=== PATIENT | female | born 1960 | race Caucasian/White ===

== ENCOUNTER 2016-12-08 18:42 | Observation (INO) | payer BC ==
[~2016-12-08] VITALS: Ht 165.1 cm; Wt 80.3 kg
[~2016-12-08 18:42] MED LIST: ESSENTIAL OILS PO; FEXO1TAB46 PO; LISI20TA PO; MULTTAB58 PO; [UNRECOGNIZED DRUG - OTHER]
[2016-12-08] MEDS ORDERED: ACETAMINOPHEN 325 MG TAB PO STA (19:34)
[2016-12-08 19:36] LABS: HEMATOCRIT 41.6 % (37-47); MEAN CELL VOLUME 88.7 fL (80-100); MEAN CORPUSCULAR HEMOGLOBIN 30.3 pg (25-34); MEAN CORPUSCULAR HGB CONC 34.1 g/dl (32-36); MEAN PLATELET VOLUME 11.8 fL (7.4-10.4); PLATELET COUNT 172 K/uL (130-400); RED BLOOD COUNT 4.69 M/uL (4.2-5.4); WHITE BLOOD COUNT 9.05 K/uL (4.8-10.8)
--- NOTE | 2016-12-08 19:43 | EMERGENCY ROOM VISIT NOTE ---
History Report prepared by Isai: Nickolas Daniel Under the Supervision of: Dr. Briana Crews M.D. First contact with patient: 19:25 Chief Complaint: PALPITATIONS Stated Complaint: CHEST PAIN Nursing Triage Summary: Pt reports that today at noon, while grocery shopping pt began to exerience palpitations. Pt reported feeling a "twinge" in the middle of the chest. Slight nausea. [place] like her heart was racing. Also reporting heart burn, and headache. Symptoms persisted off and on throughout the day and pt went to walk-in clinic at 1800. EKG performed there and found to be "abnormal". Given 324 ASA. Sent to [facility] via Ambulance. Hx of HTN and acid reflux. Tx reflux with peppermint oil beads. History of Present Illness The patient is a 55 year old female who presents to the Emergency Room via EMS with complaints of persistent chest pain that started around 3 hours ago. She says that last night she had cramping in her legs and toes, and had really bad heartburn. The patient notes that she does get leg cramps intermittently, but last night the cramping was worse than normal. She adds that her left leg was the most painful. The patient says that her chest pain started around 3 hours ago, and she describes it as intermittent quick shooting pains, which started underneath her breast bone, and then moved up to the middle of her chest. She notes that it is not very painful taking a deep breath. The patient currently rates her pain as a 3 out of 10 in severity. She adds that she has a headache too, but has been getting some headaches recently. She notes that over the past few months, she has felt "weird" and very tired if she overexerts herself. She went to her doctor, and was put on thyroid medication 7 weeks ago. She notes that she has not been having chest pain with exertion, but she has been getting a bit short of breath. The patient denies a worsening cough. She notes no history of blood clots, but her father did of a pulmonary embolism. She notes no recent trips or surgeries, but she adds that she has been under a lot of stress recently, with her son being in some trouble and her cat dying. The patient adds that she was given Aspirin at the clinic prior to arrival today. She has a family history of heart disease. The patient is not on any blood thinners and she is a non-smoker. Source of History: patient Onset: 3 hours ago Position: chest Quality: other (quick shooting pains) Timing: other (persistent) Associated Symptoms: + headache, + SOB (recently if exerts herself too much) , + fatigue (over past few months ), No cough (any worsened) Note: Associated symptoms: Last night had cramping in legs and toes and had bad heartburn. Review of Systems See HPI for pertinent positives & negatives. A total of 10 systems reviewed and were otherwise negative. Past Medical & Surgical Medical Problems: (1) Diabetes (2) History of bowel removal from diverticulitis (3) HTN (hypertension) Family History Diabetes mellitus FH: pulmonary embolism Gallbladder disease Heart disease Hypertension Social History Smoking Status: Never Smoker Marital Status: Housing Status: lives with family Occupation Status: employed Current/Historical Medications Scheduled Hctz/Lisinopril (PRINZIDE 20/12.5 Mg), 0.5 TAB PO DAILY Levothyroxine Sodium (Synthroid), 25 MCG PO DAILY Multiple Vitamin (Multivitamin), 1 TAB PO QAM [Essential Oils], 1 CAP PO QAM Allergies Coded Allergies: Morphine (Verified Allergy, Intermediate, RASH, 12/08/16) Physical Exam Vital Signs Date Time Temp Pulse Resp B/P (MAP) Pulse Ox O2 Delivery O2 Flow Rate FiO2 12/08/16 21:01 108/86 12/08/16 20:47 87 16 97 12/08/16 20:30 113/70 12/08/16 20:17 88 20 96 12/08/16 20:06 90 17 115/73 96 Room Air 12/08/16 20:06 115/73 12/08/16 19:47 93 29 94 12/08/16 19:42 87 20 93 12/08/16 19:31 133/100 12/08/16 19:12 90 22 92 12/08/16 19:01 155/96 12/08/16 18:53 97 12/08/16 18:50 148/86 12/08/16 18:42 95 Room Air 12/08/16 18:42 95 Room Air 12/08/16 18:42 37.2 80 17 148/86 95 Room Air Physical Exam Vital signs reviewed. General: Well-appearing 55 year old female, in no significant distress. HEENT: No scleral icterus, PERRLA, neck supple. Atraumatic. Cardiovascular: Regular rate and rhythm, no extra sounds. Pulmonary: Clear to auscultation bilaterally, normal work of breathing. Abdomen: Soft, nontender, nondistended, positive bowel sounds. Musculoskeletal: Atraumatic, no peripheral edema. Neurologic: Patient awake alert and oriented x 3, full strength in all 4 extremities. Cranial nerves 2 through 12 grossly intact. Skin: Warm, dry, no rash Medical Decision & Procedures ER Provider Diagnostic Interpretation: X-ray results as stated below per interpretation by me and the radiologist: CHEST ONE VIEW PORTABLE CLINICAL HISTORY: Chest pain. COMPARISON STUDY: Chest radiograph January 18, 2017. FINDINGS: Lung volumes are normal. Mild left basilar opacity is suggestive of atelectasis. There is no evidence of pulmonary edema. There is no consolidation to suggest pneumonia. The cardiomediastinal silhouette is normal. IMPRESSION: No acute cardiopulmonary findings. Electronically signed by: Tom Vick M.D. 12/08/2016 7:40 PM Dictated Date/Time: 12/08/2016 7:39 PM Laboratory Results 12/08/16 19:00 12/08/16 19:00 Test 12/08/16 19:00 12/08/16 19:12 Red Blood Count 4.69 M/uL (4.2-5.4) Mean Corpuscular Volume 88.7 fL (80-100) Mean Corpuscular Hemoglobin 30.3 pg (25-34) Mean Corpuscular Hemoglobin Concent 34.1 g/dl (32-36) RDW Standard Deviation 42.8 fL (36.4-46.3) RDW Coefficient of Variation 13.3 % (11.5-14.5) Mean Platelet Volume 11.8 fL (7.4-10.4) Anion Gap 7.0 mmol/L (3-11) Est Creatinine Clear Calc Drug Dose 77.4 ml/min Estimated GFR () 88.1 Estimated GFR (Non- 76.1 BUN/Creatinine Ratio 17.9 (10-20) Calcium Level 9.6 mg/dl (8.5-10.1) Total Bilirubin 0.3 mg/dl (0.2-1) Aspartate Amino Transf (AST/SGOT) 24 U/L (15-37) Alanine Aminotransferase (ALT/SGPT) 29 U/L (12-78) Alkaline Phosphatase 71 U/L (45-117) Total Creatine Kinase 157 U/L (26-192) Creatine Kinase MB 1.7 ng/ml (0.5-3.6) Creatine Kinase MB Ratio 1.1 (0-3.0) Total Protein 7.8 gm/dl (6.4-8.2) Albumin 4.1 gm/dl (3.4-5.0) Globulin 3.7 gm/dl (2.5-4.0) Albumin/Globulin Ratio 1.1 (0.9-2) Bedside Troponin I < 0.030 ng/ml (0-0.045) Laboratory results per my review. Medications Administered Medications (Trade) Dose Ordered Sig/Kaur Route Start Time Stop Time Status Last Admin Dose Admin Nitroglycerin (Nitrostat Tab) 0.4 mg Q5M PRN SL 12/08/16 19:45 12/08/16 21:50 DC 12/08/16 19:51 0.4 MG Acetaminophen (Tylenol Tab) 650 mg NOW STAT PO 12/08/16 19:34 12/08/16 19:35 DC 12/08/16 19:51 650 MG ECG Indication: chest pain Rate (beats per minute): 85 Rhythm: normal sinus Findings: no acute ischemic change, no ectopy, other (previous septal infarct) ED Course 1925: Past medical records reviewed. The patient was evaluated in room B5. A complete history and physical examination was performed. The patient verbally expressed understanding and agreement of the treatment plan. The patient will be evaluated for further treatment. 1933: Ordered Tylenol Tab 650 mg PO. 1944: Ordered Nitrostat Tab 0.4 mg SL PRN. 2039: I discussed the patient with Dr. Campuzano - [facility] director radio - he will evaluate the patient for further treatment. Medical Decision DDx: Acute coronary syndrome, pulmonary embolus, aortic dissection, musculoskeletal pain, pneumonia, pleural effusion, pneumothorax This patient was evaluated and appeared to be in no significant distress. IV access was obtained and laboratory work was drawn. Patient was given sublingual nitroglycerin patient was given oral Tylenol for her headache. EKG reveals no evidence of acute ischemia. Laboratory work reveals normal cardiac enzymes. Chest x-ray was obtained and is clear. Given the patient's history of diabetes and hypertension as well as the short duration of her chest pain, the patient will be evaluated by the hospitalist service for further management. She is aware of the plan and agrees. Medication Reconcilliation Current Medication List: was personally reviewed by me Blood Pressure Screening Patient's blood pressure: Elevated blood pressure Referred to hospitalist. Consults Time Called: 2029 Consulting Physician: Dr. Justen QUINTANILLA director radio Returned Call: 2039 I discussed the patient with Dr. Justen QUINTANILLA director radio - he will evaluate the patient for further treatment. Impression Primary Impression: Substernal chest pain Additional Impression: HTN (hypertension) Scribe Attestation The scribe's documentation has been prepared under my direction and personally reviewed by me in its entirety. I confirm that the note above accurately reflects all work, treatment, procedures, and medical decision making performed by me. Departure Information Dispostion Being Evaluated By Hospitalist Referrals Edelmira Ayala (PCP) Patient Instructions My [facility] Problem Qualifiers
[2016-12-08] MEDS ORDERED: NITROGLYCERIN 0.4 MG SL PER TAB CHARGE SL PRN ×2 (19:45→21:15)
[2016-12-08 19:47] LABS: BUN/CREATININE RATIO 17.9 (10-20); CALCIUM 9.6 mg/dl (8.5-10.1); CREATININE 0.86 mg/dl (0.60-1.20)
[2016-12-08] MEDS ORDERED: LSN/20125 PO (19:50)
[2016-12-08] MEDS ORDERED: LEVO25TA PO (19:50)
[2016-12-08 19:51] LABS: ALB/GLOB RATIO 1.1 (0.9-2); CKMB/CK RATIO 1.1 (0-3.0)
[2016-12-08] MEDS ORDERED: MAGNESIUM HYDROXIDE SUSP 30 ML UDC PO PRN (21:15)
[2016-12-08] MEDS ORDERED: POLYETHYLENE (MIRALAX) 17 GM PACK PO PRN (21:15)
[2016-12-08] MEDS ORDERED: ONDANSETRON INJ 2 MG/ML 2 ML VIAL IV PRN (21:15)
[2016-12-08] MEDS ORDERED: IV FLUIDS COMPLETED PRN (21:15)
[2016-12-08] MEDS ORDERED: ALUMINUM/MAGNESIUM/SIMETH (MAALOX MAX) 30 ML UDC PO PRN (21:15)
[2016-12-08] MEDS ORDERED: ACETAMINOPHEN 325 MG TAB PO PRN (21:15)
[2016-12-08 21:26] VITALS: O2SAT 95
--- NOTE | 2016-12-08 21:31 | History and Physical ---
History & Physical Date & Time of Service: Dec 08, 2016 at 21:11 Chief Complaint: Chest Pain Primary Care Physician: Edelmira Ayala History of Present Illness Source: patient, family The patient is a 55 y/o F who presents with complaints of chest pain that started around 3 hours ago. Her pain is a 3/10 and is intermittent. Radiates to her lower chest. She also reports having had leg cramps last night as well as some heart burn that persisted into today. Denies chest pain or shortness of breath with inspiration. The patient notes that she does get leg cramps intermittently, but last night the cramping was worse than normal. She denies any recent travel except for a 1 hr car ride. She also reports headaches intermittently. Overall she just doesn't feel like herself and fatigued. She was also recently started on Synthroid. She also noted that her blood pressure was waxing and waning. She went to the [facility] walk in before coming to the ER where she was told her EKG had some changes. She was given aspirin at the clinic. She does not have prior cardiac history. Her father did pass from a PE. She has no personal history of blood clots. She has had some stressors recently with her son and cat that . Denies smoking Denies history of CT or Strokes Stays home Past Medical/Surgical History Medical Problems: (1) Diabetes Status: Chronic (2) History of bowel removal from diverticulitis Status: Chronic (3) HTN (hypertension) Status: Chronic Family History Diabetes mellitus FH: pulmonary embolism Gallbladder disease Heart disease Hypertension Social History Smoking Status: Never Smoker Marital Status: Occupational Status: employed Immunizations History of Influenza Vaccine: No History of Tetanus Vaccine?: No Tetanus Immunization Date: Apr 03, 2004 History of Pneumococcal: No History of Hepatitis B Vaccine: No Multi-Drug Resistant Organisms History of MDRO: No Allergies Coded Allergies: Morphine (Verified Allergy, Intermediate, RASH, 12/08/16) Home Medications Scheduled Hctz/Lisinopril (PRINZIDE 20/12.5 Mg), 0.5 TAB PO DAILY Levothyroxine Sodium (Synthroid), 25 MCG PO DAILY Multiple Vitamin (Multivitamin), 1 TAB PO QAM [Essential Oils], 1 CAP PO QAM Review of Systems Constitutional: No fever, No chills Eyes: No worsening of vision Respiratory: No cough, No sputum, No wheezing, No shortness of breath, No dyspnea on exertion, No dyspnea at rest Cardiovascular: + chest pain, No edema Abdomen: + nausea, No pain, No vomiting, No diarrhea, No constipation Genitourinary - Female: No dysuria, No urinary frequency, No urinary urgency Physical Exam Vital Signs Date Time Temp Pulse Resp B/P (MAP) Pulse Ox O2 Delivery O2 Flow Rate FiO2 12/08/16 20:06 90 17 115/73 96 Room Air 12/08/16 19:42 87 20 93 12/08/16 19:31 133/100 12/08/16 19:12 90 22 92 12/08/16 19:01 155/96 12/08/16 18:53 97 12/08/16 18:50 148/86 12/08/16 18:42 95 Room Air 12/08/16 18:42 95 Room Air 12/08/16 18:42 37.2 80 17 148/86 95 Room Air General Appearance: no apparent distress Head: normocephalic, atraumatic Eyes: normal inspection, PERRL, EOMI ENT: hearing grossly normal, pharynx normal Neck: no adenopathy, no JVD Respiratory/Chest: lungs clear, normal breath sounds, no respiratory distress, no accessory muscle use Cardiovascular: regular rate, rhythm, no edema, no murmur, normal peripheral pulses Abdomen/GI: normal bowel sounds, non tender, soft Back: no CVA tenderness, no muscle spasm, normal range of motion Extremities/Musculoskelatal: no calf tenderness, no pedal edema Neurologic/Psych: shell mold bonder II-XII nml as tested, no motor/sensory deficits, alert, normal mood/affect, normal reflexes, oriented x 3 Diagnostics Laboratory Results Results Past 24 Hours Test 12/08/16 19:00 12/08/16 19:12 12/08/16 20:19 12/08/16 20:56 Range/Units White Blood Count 9.05 4.8-10.8 K/uL Red Blood Count 4.69 4.2-5.4 M/uL Hemoglobin 14.2 12.0-16.0 g/dL Hematocrit 41.6 37-47 % Mean Corpuscular Volume 88.7 80-100 fL Mean Corpuscular Hemoglobin 30.3 25-34 pg Mean Corpuscular Hemoglobin Concent 34.1 32-36 g/dl RDW Standard Deviation 42.8 36.4-46.3 fL RDW Coefficient of Variation 13.3 11.5-14.5 % Platelet Count 172 130-400 K/uL Mean Platelet Volume 11.8 7.4-10.4 fL Sodium Level 138 136-145 mmol/L Potassium Level 4.0 3.5-5.1 mmol/L Chloride Level 104 98-107 mmol/L Carbon Dioxide Level 27 21-32 mmol/L Anion Gap 7.0 3-11 mmol/L Blood Urea Nitrogen 15 7-18 mg/dl Creatinine 0.86 0.60-1.20 mg/dl Est Creatinine Clear Calc Drug Dose 77.4 ml/min Estimated GFR () 88.1 Estimated GFR (Non- 76.1 BUN/Creatinine Ratio 17.9 10-20 Random Glucose 108 70-99 mg/dl Calcium Level 9.6 8.5-10.1 mg/dl Total Bilirubin 0.3 0.2-1 mg/dl Aspartate Amino Transf (AST/SGOT) 24 15-37 U/L Alanine Aminotransferase (ALT/SGPT) 29 12-78 U/L Alkaline Phosphatase 71 45-117 U/L Total Creatine Kinase 157 26-192 U/L Creatine Kinase MB 1.7 0.5-3.6 ng/ml Creatine Kinase MB Ratio 1.1 0-3.0 Total Protein 7.8 6.4-8.2 gm/dl Albumin 4.1 3.4-5.0 gm/dl Globulin 3.7 2.5-4.0 gm/dl Albumin/Globulin Ratio 1.1 0.9-2 Bedside Troponin I < 0.030 0-0.045 ng/ml Test 12/08/16 21:04 Range/Units Impression Assessment and Plan This is a 55 y/o F who presents with chest pain, fatigue and overall feeling "unwell". Chest pain r/o vs. inflammatory conditions vs. GERD vs. anxiety: Initial troponin negative trend x 3 EKG with evidence of old infarct Hold on stress echo ?inflammatory conditions- ESR, TAMI ordered D-Dimer pending Diabetes, diet controlled Diabetic diet HTN HCTZ/Losartan DVT proph Lovenox Gerd Protonix COde: Full Attending Addendum: I have physically seen and examined this patient, have directed the resident's medical activities, and agree with the H&P as noted above with the following exceptions as noted. The patient is awake, alert and oriented 3, well-developed and well-nourished , normocephalic and atraumatic, lying in bed and in no acute distress. HEENT--PERRL, EOMI, mucous membranes and oropharynx dry. Neck--supple, no JVD or bruits, thyroid normal, trachea midline, no adenopathy. Heart--normal S1 and S2, no extra beats, no murmurs, rubs or gallops. Lungs--clear bilaterally with good air movement, no respiratory distress, no accessory muscle use. Abdomen--normal bowel sounds and soft, nontender and nondistended, no hernias or masses, no organomegaly. Extremities--no cyanosis, clubbing or edema. There are good distal pulses b/l. Dermatologic--normal skin turgor, normal color, warm and dry, no abnormal lymph nodes, no rash. Neurologic--cranial nerves II through XII grossly intact. Rheumatologic--normal range of motion. Psychiatric--normal affect. Assessment and Plan: Precordial chest pain/myalgias and arthralgias/fatigue-- The patient will be admitted to telemetry for serial cardiac enzymes, cardiac rhythm monitoring and a 2-D echocardiogram with Dopplers. Order sedimentation rate, TAMI and Lyme. D-dimer pending. Diet-controlled diabetes mellitus-- Place on Accu-Cheks before meals and at bedtime with NovoLog coverage per scale. Hypertension-- Continue HCTZ/losartan. GERD--continue Protonix Level of Care Telemetry Advanced Directives Existing Advance Directive: No Existing Living Will: No Existing Power of Rooming House Inspector: No Resuscitation Status FULL RESUSCITATION VTE Prophylaxis VTE Risk Assessment Done? Y/N: Yes Risk Level: Moderate Given or contraindicated: SCD's Social Service Consult None Apply
[2016-12-08 21:52] VITALS: BP 145/80; PULSE 69; TEMP 36.6; Ht 165.1 cm; Wt 80.3 kg
[2016-12-08] MEDS ORDERED: INFLUENZA ADMINISTRATION CHARGE ONE (22:00)
[2016-12-08] MEDS ORDERED: INFLUENZA VIRUS QUAD VACCINE 0.5 ML SYR IM. ONE (22:00)
[2016-12-08 22:37] LABS: INR 0.9 (0.9-1.1); PARTIAL THROMBOPLASTIN RATIO 0.9
[2016-12-08 23:39] VITALS: BP 125/77; PULSE 72; TEMP 36.5; O2SAT 97
[2016-12-09 03:27] VITALS: BP 110/74; PULSE 70; TEMP 36.5; O2SAT 94
[2016-12-09 03:59] LABS: CHOLESTEROL 189 mg/dl (0-200); HDL CHOLESTEROL 63 mg/dl; LDL CHOLESTEROL CALCULATED 110 mg/dl; TRIGLYCERIDES 80 mg/dl (0-150); VERY LOW DENSITY LIPOPROT CALC 16 mg/dl
[2016-12-09] MEDS ORDERED: LEVOTHYROXINE 25 MCG TAB PO SCH (06:00)
[2016-12-09 07:27] VITALS: BP 143/89; PULSE 63; TEMP 36.4; O2SAT 99
[2016-12-09] MEDS ORDERED: MULTIVITAMIN TAB PO SCH (09:00)
[2016-12-09] MEDS ORDERED: ENOXAPARIN 40 MG/0.4 ML SYR SC SCH (09:00)
[2016-12-09] MEDS ORDERED: PANTOprazole SOD 40 MG TAB PO SCH (09:00)
[2016-12-09] MEDS ORDERED: LISINOPRIL/HCTZ 20/12.5MG TAB PO SCH (09:00)
--- NOTE | 2016-12-09 10:45 | Discharge Instructions ---
Discharge Instructions Date of Service Dec 09, 2016. Admission Reason for Admission: Substernal Chest Pain Discharge Discharge Diagnosis / Problem: Chest Pain of Unknown Origin Discharge Goals Goal(s): Decrease discomfort, Improve function, Increase independence, Improve disease control, Improve nutritional status, Learn about illness Activity Recommendations Activity Limitations: per Instructions/Follow-up section . Instructions / Follow-Up Instructions / Follow-Up You were admitted to the hospital for a chest pain rule out. Your initial EKG showed evidence of a previous heart attack. Your two follow up EKGs did not show evidence of a previous heart attack. Your blood work did not show any leakage from your heart of Troponin (an enzyme released by a heart in distress). The troponin level was checked three times and was undetectable each time. The blood work showed a D-Dimer level of 250. This number means you are unlikely to have a blood clot in your body. You have excellent cholesterol levels. Your cholesterol level, taking into account your gender, blood pressure and age, means you do not need to be on a daily Aspirin. Please follow up with your PCP in one week. We recommend a cardiac stress test to evaluate your heart function. Please mention this to your PCP, they would be able to arrange it. A copy of your hospital records will also be sent to your PCP - and it will also mention our recommendation for an outpatient cardiac stress test. Information on exercise stress tests (a subtype of cardiac stress test) will be included in your discharge paperwork. Continue to eat healthy and take your blood pressure and thyroid medications as prescribed. Current Hospital Diet Patient's current hospital diet: Diabetes Type 2 Diet Discharge Diet Recommended Diet: AHA Diet (Heart Healthy) Pending Studies Studies pending at discharge: no Laboratory Results Lipid Panel Test 12/09/16 03:20 Range/Units Triglycerides Level 80 0-150 mg/dl Cholesterol Level 189 0-200 mg/dl HDL Cholesterol 63 mg/dl Cholesterol/HDL Ratio 3.0 LDL Cholesterol, Calculated 110 mg/dl Medical Emergencies . Who to Call and When: Medical Emergencies: If at any time you feel your situation is an emergency, please call 911 immediately. . Non-Emergent Contact Non-Emergency issues call your: Primary Care Provider . . "Provider Documentation" section prepared by Mo Fraga. . VTE Core Measure Inpt VTE Proph given/why not?: Enoxaparin (Lovenox)SQ Resident Involvement: Resident Care Provided Care Provided: Adult Hospital Medicine
--- NOTE | 2016-12-09 10:54 | Discharge Summary ---
Discharge Summary Date of Service Dec 09, 2016. (Mo Fraga M.D.) Discharge Summary Admission Date: Dec 08, 2016 at 21:08 Discharge Date: Dec 09, 2016 Discharge Disposition: Home Principal Diagnosis: Chest pain of unknown origin, likely pleuritic. Problems/Secondary Diagnoses: (1) HTN (hypertension) Status: Chronic Immunizations: Have You Had Influenza Vaccine: No History of Tetanus Vaccine?: No Tetanus Immunization Date: Apr 03, 2004 History of Pneumococcal: No History of Hepatitis B Vaccine: No Procedures: Stress Echocardiogram 1. Normal stress echocardiogram at 8.9 METS and a peak heart rate of 96% predicted maximum. 2. No exercise-induced chest pain. 3. No EKG changes. 4. Baseline echocardiogram notes normal left ventricular systolic function. Repeat EKG Normal sinus rhythm Normal ECG When compared with ECG of 08-DEC-2016 18:49, (unconfirmed) Criteria for Septal infarct are no longer Present CHEST ONE VIEW PORTABLE CLINICAL HISTORY: Chest pain. COMPARISON STUDY: Chest radiograph January 18, 2017. FINDINGS: Lung volumes are normal. Mild left basilar opacity is suggestive of atelectasis. There is no evidence of pulmonary edema. There is no consolidation to suggest pneumonia. The cardiomediastinal silhouette is normal. IMPRESSION: No acute cardiopulmonary findings. (Mo Fraga M.D.) Medication Reconciliation Continued Medications: Hctz/Lisinopril (PRINZIDE 20/12.5 Mg) 1 Ea Tab 0.5 TAB PO DAILY, TAB Levothyroxine Sodium (Synthroid) 25 Mcg Tab 25 MCG PO DAILY, TAB Multiple Vitamin (Multivitamin) 1 Tab Tab 1 TAB PO QAM, TAB [Essential Oils] () 1 CAP PO QAM Discharge Exam The patient was seen and examined at bedside. No acute overnight events. Telemetry showed sinus rhythm in the 60s and 70s. Patient is resting comfortably in bed. Only reports having chest pain on deep inhalation. Pt is on room air. Plan of care was described to the patient and all questions were answered. Review of Systems: Constitutional: No fever, No weight loss, No weakness ENT: No hearing loss Respiratory: No cough, No sputum, No shortness of breath, No dyspnea on exertion Cardiovascular: No orthopnea, No edema Abdomen: No pain, No nausea, No vomiting, No diarrhea, No constipation Genitourinary - Female: No dysuria Psychiatric: No anxiety Endocrine: No fatigue, No excessive thirst Integumentary: No rash Physical Exam: General Appearance: WD/WN, no apparent distress Eyes: normal inspection ENT: normal ENT inspection Neck: supple Respiratory/Chest: chest non-tender, lungs clear, normal breath sounds, no respiratory distress, no accessory muscle use Cardiovascular: regular rate, rhythm, no edema, no gallop, no JVD, no murmur , normal peripheral pulses Abdomen / GI: normal bowel sounds, non tender, soft, no organomegaly, no pulsatile mass, normal rectal exam Extremities: normal inspection, no calf tenderness (bilaterally), no pedal edema, normal range of motion, non-tender Neurologic/Psychiatric: digital strategist II-XII nml as tested, no motor/sensory deficits , alert, normal mood/affect, normal reflexes, oriented x 3 Skin: normal color, warm/dry, no rash (Mo Fraga M.D.) has had occasional twinges in chest this morning. none like last night Review of Systems: Constitutional: No fever Respiratory: No shortness of breath Abdomen: No pain Physical Exam: General Appearance: no apparent distress Respiratory/Chest: lungs clear, no respiratory distress Cardiovascular: regular rate, rhythm Abdomen / GI: soft Neurologic/Psychiatric: alert, oriented x 3 (Shruti Griffiths M.D.) Hospital Course 55F with a PMHx of HTN and Hypothyroidism presented to the ER c/o crushing chest pain. Nonspecific changes on admission EKG. Repeat EKGs showed normal sinus rhythm. Pt was also complaining of bilateral toe pain and left ankle pain on admission that has resolved. D-Dimer was 250, however she does have a family history on her fathers side and paternal grandfather. Patient's troponins were negative x 3. Stress echocardiogram results are as above and were grossly normal. Patient will be discharged in good condition. Pt advised to follow up with PCP within two weeks. Pt's fasting lipids, age, BP and non smoking history put patient at 3.6% 10 year [place]/Stroke risk, ergo she does not meet criteria for daily ASA 81mg prophylaxis. Total Time Spent: Greater than 30 minutes (33 minutes) This includes examination of the patient, discharge planning, medication reconciliation, and communication with other providers. (Mo Fraga M.D.) Resident Physician Supervision Note: I independently interviewed and examined the patient and verified the wall history and physical, reviewed labs and image studies, discussed the case with the resident Dr. Frgaa and agree with the findings and care plan. Total Time Spent: Greater than 30 minutes (35) (Shruti Griffiths M.D.) Discharge Instructions Please refer to the electronic Patient Visit Report (Discharge Instructions) for additional information. (Mo Fraga M.D.) Follow-Up Follow up with PCP in one week. (Mo Fraga M.D.) Additional Copies To Edelmira Ayala Resident Involvement: Resident Care Provided Care Provided: [facility] (Mo Fraga M.D.)
[2016-12-09 13:02] VITALS: BP 143/89; PULSE 63; TEMP 36.4; O2SAT 99
--- NOTE | 2016-12-09 13:06 | EXERCISE STRESS ECHO ---
*NOTICE TO RECEIVING DEMOCRAT AGENCY This information is strictly Confidential and protected under [place] law. [place] law prohibits you from making any further disclosure of this information unless further disclosure is expressly permitted by the written consent of the person to whom it pertains or is authorized by law. A general authorization for the release of medical or other information is not sufficient for this purpose. Hospital accepts no responsibility if the information is made available to any other person, INCLUDING THE PATIENT. Interpretation Summary * Name: ALEXIS COLLIER Study Date: 12/09/2016 11:03 AM BP: 126/90 mmHg * Patient Location: .2T\S\S234\S\1 HR: 81 * : 1960 (M/d/yyyy) Gender: Female Height: 65 in * Age: 55 yrs Ethnicity: CA Weight: 177 lb * Ordering Physician: Shruti Griffiths * Referring Physician: Self, Referred * Performed By: Jessica Cesar RCS * * Reason For Study: CHEST PAIN * BSA: 1.9 m2 * -- Conclusions -- * 1. Normal stress echocardiogram at 8.9 METS and a peak heart rate of 96% predicted maximum. * 2. No exercise-induced chest pain. * 3. No EKG changes. * 4. Baseline echocardiogram notes normal left ventricular systolic function. Procedure Details * ECHOEX, CPT #92005 Left Ventricle * The left ventricle is normal in size. * There is normal left ventricular wall thickness. * Left ventricular systolic function is normal. * Resting wall motion: Normal. Stress wall motion: Appropriate increase in Left ventricular systolic function and decrease in cavity size. No stress induced segmental wall motion abnormalities. Stress Parameters * Normal baseline electrocardiogram. * The stress ECG response was normal * The stress portion of this study was personally supervised by the undersigned interpreting physician. * Rest heart rate was '81' BPM. * Rest blood pressure was '126/90' * Maximum heart rate achieved was 160 bpm. * Maximum heart rate was 96 % of maximum age-predicted heart rate. * Maximum blood pressure was '205/84' * Total exercise time was '7:15' * Maximum exercise MET level achieved was '8.9' METS * Maximum treadmill speed was '3.4' miles per hour. * Maximum treadmill elevation was '14'% grade. * Exercise was terminated due to 'fatigue after achieving target heart rate'
== END 2016-12-09 13:15 | disposition home or self-care (01) ==
LOC: EDBD 18:42 → C.EDB 18:44 → C.2T 21:08 → ENRESERV 21:16
PROVIDERS: ADMIT Hospitalist; ATTEND Family Medicine
DX: R07.2 Precordial pain (principal); I10 Essential (primary) hypertension; E11.9 Type 2 diabetes mellitus without complications; E03.9 Hypothyroidism, unspecified; K21.9 Gastro-esophageal reflux disease without esophagitis; Z79.899 Other long term (current) drug therapy

== ENCOUNTER → 2017-05-23 | Outpatient (CLI) | payer BC ==
[~2017-05-23] MED LIST changes: -FEXO1TAB46 PO; +LEVO25TA PO; -LISI20TA PO; +LSN/20125 PO; -[UNRECOGNIZED DRUG - OTHER]
--- NOTE | 2017-05-23 15:22 | MAMMOGRAPHY REPORT ---
BILATERAL DIGITAL DIAGNOSTIC MAMMOGRAM TOMOSYNTHESIS WITH CAD AND TARGETED BILATERAL ULTRASOUND: 2017 CLINICAL HISTORY: The patient reports right lateral breast pain for approximately 2 weeks. She denie s any clear palpable lumps or other complaints. TECHNIQUE: Breast tomosynthesis in addition to standard 2D mammography was performed. Current study was also evaluated with a Computer Aided Detection (CAD) system. Bilateral CC and MLO and left ML 2D and tomosynthesis images were obtained. COMPARISON: No prior exams were available for comparison. BREAST COMPOSITION: There are scattered areas of fibroglandular density in both breasts. FINDINGS: There is an asymmetry seen within the left superior breast on the MLO view, which is less p rominent on the left ML view and likely represents normal fibroglandular tissue although ultrasound w as performed. The remainder of both breasts demonstrate no suspicious masses, calcifications, or are as of architectural distortion. A few scattered benign-appearing calcifications are noted. Targeted ultrasound was performed of the area of pain pointed out by the patient involving the right lateral breast. Sonographically normal tissue is seen, without evidence of a mass or other suspiciou s sonographic abnormality. Ultrasound was also performed of the left superior breast in the region o f the mammographic asymmetry, which also shows no suspicious masses or other suspicious sonographic a bnormalities. Given that the asymmetry is less prominent on the lateral view and ultrasound showed n o sonographic correlate, it is benign and compatible with normal fibroglandular tissue. IMPRESSION: ACR BI-RADS CATEGORY 2: BENIGN, TARGETED ULTRASOUND ACR BI-RADS CATEGORY 2: BENIGN No suspicious mammographic or sonographic abnormality to explain right lateral breast pain. There is no mammographic evidence of malignancy in either breast. Recommend clinical follow-up for right rodrigo ast pain, and recommend routine bilateral screening mammograms in one year. The patient has been verbally notified of the results. Approximately 10% of breast cancers are not detected with mammography. A negative mammographic report should not delay biopsy if a clinically suggestive mass is present. Chyna John M.D. /:05/23/2017 12:12:14 Bracelet Form Coverer: Radha GONZALEZ (R)), [facility] letter sent: Normal 1/2 BI-RADS Code: ACR BI-RADS Category 2: Benign Ultrasound BI-RADS: ACR BI-RADS Category 2: Benign
== END | disposition home or self-care (01) ==
LOC: C.MAMM 11:15
PROVIDERS: ATTEND Nurse Practitioner Family
DX: N64.4 Mastodynia (principal)

== ENCOUNTER 2020-08-26 14:20 | Observation (INO) ==
[2020-08-26] MEDS ORDERED: SODIUM CHLORIDE 0.9% 1000ML 2,000 ML IV ONE (15:25)
[2020-08-26] MEDS ORDERED: PIPERACILL/TAZOBAC CONSULT ACTIVE PRN (15:26)
[2020-08-26] MEDS ORDERED: PIPERACILLIN/TAZOBACTAM 4.5 GM/120 ML BAG IV ONE (15:26)
[2020-08-26] MEDS ORDERED: ONDANSETRON INJ 2 MG/ML 2 ML VIAL IV STA ×2 (15:26→18:18)
[2020-08-26] MEDS ORDERED: ACETAMINOPHEN 325 MG TAB PO STA (15:44)
--- NOTE | 2020-08-26 15:44 | Emergency Department Note ---
Impression & Plan Sepsis, Leukocytosis, Pyelonephritis, Acute hyponatremia, Vomiting ED Provider Note NAME: ALEXIS COLLIER AGE: 59 SEX: F : 1960 ARRIVES VIA: Walk-In INFORMANT: Patient ED PROVIDER(S): Julio Corea DO CHIEF COMPLAINT: abdominal pain HPI: Patient is a 59-year-old female who presents the ER for left lower quadrant abdominal pain which started over a week ago. She has been having persistent fevers daily for the past 3 to 4 days. Admits to some nausea and vomiting. Does admit to some dysuria and urgency. No headache or change in vision. No chest pain or shortness of breath. She does have a cough which notes is likely secondary to stuff coming back up into her throat like she wants to vomit. No loss of taste or smell. No other exacerbating or remitting factors. No antibiotics. Does have a history of a previous diverticulitis with colon r esection. ROS: See above HPI for pertinent positives & negatives. A total of 10 systems reviewed and were otherwise negative. PAST MEDICAL HISTORY:See Below PAST SURGICAL HISTORY:See Below FAMILY HISTORY:See Below SOCIAL HISTORY:See Below HOME MEDICATIONS:See Below ALLERGIES:See Below VITALS:See Below PHYSICAL EXAMINATION: GENERAL: Sitting up in bed, alert, well appearing, well nourished, no distress, non-toxic EYE EXAM: normal conjunctiva. OROPHARYNX: mucous membranes are dry LUNGS: Clear to auscultation. Normal chest wall mechanics HEART: tavchy, S1 normal and S2 normal ABDOMEN: abdomen soft, non-tender, normo-active bowel sounds, no masses, no rebound or guarding. BACK: Back is symmetrical on inspection and there is no deformity, no midline tenderness, no CVA tenderness. UPPER EXTREMITIES: upper extremities are grossly normal. LOWER EXTREMITIES: No pitting edema. NEURO EXAM: Normal sensorium, cranial nerves II-XII grossly intact, normal speech, no gross weakness of arms, no gross weakness of legs. MEDICAL DECISION MAKING: Story patient is a 59-year-old female who presents the ER for nausea vomiting and left lower quadrant abdominal pain as well as some back pain. Patient was febrile and tachycardic. Heart rate was up in the 120s to 130s. Labs show leukocytosis 16,000. No significant anemia. Left shift on CBC. BMP with mild hyponatremia at 129. Lactate at 1.8. LFTs bilirubin and lipase was unremarkable. UA with leuks whites and bacteria.CT abdomen pelvis does suggest pyelonephritis. She was given 2.5 L IV fluids, IV Zosyn as I initially thought this was diverticulitis. Patient was given multiple doses of Zofran and Reglan discussed with the hospitalist for further evaluation of her sepsis secondary to pyelonephritis. Triage Nursing notes reviewed. Limited review of prior medical records performed Vital Signs: reviewed and remarkable for febrile and tachycardic Differential diagnosis: Differential diagnosis includes etiologies such as sepsis, UTI, pneumonia, metab olic, electrolyte abnormalities, cardiac sources, intracerebral event, toxicologic, neurological, as well as others were entertained. ER treatment provided: See below Diagnostics interpreted by me: ECG: none Cardiac Monitoring: An order was placed for continuous cardiac monitoring. The monitor shows a rate of 121 with sinus rhythm. Laboratory studies: As stated above and show below. Imaging studies: CT abdomen pelvis as discussed above Consultation(s): D/augustus Sanchez For further evaluation Procedures: none Critical Care: I have personally spent 33 minutes of critical care time in the direct management of this patient. This includes bedside care, interpretation of diagnostic studies, and testing, discussion with consultants, patient, and family members, and other required patient management activities. This [] minutes is in excess of all separately billable procedures.33 Past Med/Surg History Social History Smoking Status: Never smoker Preferred Language: Armenian Feels Safe at Home: Yes Allergies Allergies Allergy/AdvReac Type Severity Reaction Status Date / Time shellfish derived Allergy Severe Anaphylaxis Unverified 08/26/20 16:41 morphine Allergy Intermediate RASH Verified 08/26/20 16:41 Home Meds Home Medications Medication Instructions Recorded Confirmed alprazolam 0.5 mg PO HS 08/26/20 08/26/20 levothyroxine [Synthroid] 25 mcg PO QAM 08/26/20 08/26/20 lisinopril-hydrochlorothiazide 1 tab PO BID 08/26/20 08/26/20 Results & Data (ED) Vital Signs Vital Signs - 24 hr 08/26/20 14:25 08/26/20 15:30 08/26/20 15:35 Temperature 37.6 C H 38.2 C H Temperature Source Oral Oral Pulse Rate 127 H 117 H Pulse Rate [Left] 123 H Pulse Rate from SpO2 Sensor 117 H Pulse Rhythm [Left] Regular Pulse Strength [Left] Normal Respiratory Rate 18 22 20 Respiratory Effort / Characteristics Non-Labored Respiratory Depth Normal Respiratory Pattern Regular Blood Pressure 142/88 H 139/89 Blood Pressure [Right Arm] 139/89 Blood Pressure Mean 106 105 Blood Pressure Mean [Right Arm] 105 Blood Pressure Position Sitting Blood Pressure Position [Right Arm] Sitting Pulse Oximetry 95 94 92 Oxygen Delivery Method Room Air Room Air Room Air Sepsis Recent Fever Within 48 Hours Yes Sepsis New/Unexplained Change in Mental Status No Sepsis Action Taken by Nursing No Action Required 08/26/20 16:12 08/26/20 16:15 08/26/20 16:30 Temperature Temperature Source Pulse Rate 108 H 109 H 104 H Pulse Rate [Left] Pulse Rate from SpO2 Sensor 111 H 103 H Pulse Rhythm [Left] Pulse Strength [Left] Respiratory Rate 14 18 19 Respiratory Effort / Characteristics Respiratory Depth Respiratory Pattern Blood Pressure 122/67 Blood Pressure [Right Arm] Blood Pressure Mean 85 Blood Pressure Mean [Right Arm] Blood Pressure Position Blood Pressure Position [Right Arm] Pulse Oximetry 95 91 96 Oxygen Delivery Method Room Air Room Air Room Air Sepsis Recent Fever Within 48 Hours Sepsis New/Unexplained Change in Mental Status Sepsis Action Taken by Nursing 08/26/20 16:45 08/26/20 17:00 08/26/20 17:20 Temperature 37.3 C Temperature Source Oral Pulse Rate 105 H 102 H Pulse Rate [Left] Pulse Rate from SpO2 Sensor 105 H 101 H Pulse Rhythm [Left] Pulse Strength [Left] Respiratory Rate 18 23 Respiratory Effort / Characteristics Respiratory Depth Respiratory Pattern Blood Pressure 108/66 121/68 Blood Pressure [Right Arm] Blood Pressure Mean 80 85 Blood Pressure Mean [Right Arm] Blood Pressure Position Blood Pressure Position [Right Arm] Pulse Oximetry 93 93 Oxygen Delivery Method Room Air Room Air Sepsis Recent Fever Within 48 Hours Sepsis New/Unexplained Change in Mental Status Sepsis Action Taken by Nursing 08/26/20 17:30 08/26/20 18:00 08/26/20 18:16 Temperature Temperature Source Pulse Rate 94 H 98 H Pulse Rate [Left] 99 H Pulse Rate from SpO2 Sensor 95 H 95 H Pulse Rhythm [Left] Pulse Strength [Left] Respiratory Rate 20 22 18 Respiratory Effort / Characteristics Respiratory Depth Respiratory Pattern Blood Pressure 113/67 110/70 Blood Pressure [Right Arm] 117/65 Blood Pressure Mean 82 83 Blood Pressure Mean [Right Arm] 82 Blood Pressure Position Blood Pressure Position [Right Arm] Pulse Oximetry 92 92 97 Oxygen Delivery Method Room Air Room Air Room Air Sepsis Recent Fever Within 48 Hours Sepsis New/Unexplained Change in Mental Status Sepsis Action Taken by Nursing 08/26/20 18:30 08/26/20 18:45 08/26/20 19:01 Temperature Temperature Source Pulse Rate 94 H 91 H 98 H Pulse Rate [Left] Pulse Rate from SpO2 Sensor 95 H 88 98 H Pulse Rhythm [Left] Pulse Strength [Left] Respiratory Rate 22 18 26 H Respiratory Effort / Characteristics Respiratory Depth Respiratory Pattern Blood Pressure 114/70 120/70 140/69 Blood Pressure [Right Arm] Blood Pressure Mean 84 86 92 Blood Pressure Mean [Right Arm] Blood Pressure Position Blood Pressure Position [Right Arm] Pulse Oximetry 93 93 98 Oxygen Delivery Method Room Air Room Air Room Air Sepsis Recent Fever Within 48 Hours Sepsis New/Unexplained Change in Mental Status Sepsis Action Taken by Nursing Laboratory Data Result diagrams: 08/26/20 15:31 08/26/20 15:31 Lab Results 08/26/20 08/26/20 08/26/20 Range/Units 15:20 15:31 15:31 WBC 16.05 H (4.8-10.8) K/uL RBC 4.70 (4.2-5.4) M/uL Hgb 14.7 (12.0-16.0) g/dL POC Hgb (12.0-16.0) g/dl Hct 41.9 (37-47) % POC Hct (37-47) % MCV 89.1 (80-100) fL MCH 31.3 (25-34) pg MCHC 35.1 (32-36) g/dL RDW Std Deviation 42.3 (36.4-46.3) fL RDW Coeff of Deloris 12.9 (11.5-14.5) % Plt Count 193 (130-400) K/uL MPV 11.0 H (7.4-10.4) fL Immature Gran % (Auto) 0.2 % Neut % (Auto) 79.8 % Lymph % (Auto) 10.6 % Coosa % (Auto) 9.3 % Eos % (Auto) 0.0 % Baso % (Auto) 0.1 % Neut # (Auto) 12.79 H (1.4-6.5) K/uL Lymph # (Auto) 1.70 (1.2-3.4) K/uL [place] # (Auto) 1.50 H (0.11-0.59) K/uL Eos # (Auto) 0.00 (0-0.5) K/uL Baso # (Auto) 0.02 (0-0.2) K/uL Immature Gran # (Auto) 0.04 H (0.00-0.02) K/uL POC Sodium (135-144) mmol/L Sodium 129 L (136-145) mmol/L POC Potassium (3.3-5.0) mmol/L Potassium 3.9 (3.5-5.1) mmol/L POC Chloride (101-112) mmol/L Chloride 95 L (98-107) mmol/L Carbon Dioxide 27 (21-32) mmol/L POC Total CO2 (24-31) mmol/L Anion Gap 7.0 (3-11) POC Anion Gap (16-25) mmol/L POC BUN (7-18) mg/dl BUN 19 H (7-18) mg/dl Creatinine 0.88 (0.6-1.2) mg/dl POC Creatinine (0.6-1.3) mg/dl Est Cr Clr Drug Dosing 71.4 ml/min Est GFR ( Amer) 83.4 ml/min Est GFR (Non-Af Amer) 71.9 ml/min BUN/Creatinine Ratio 21.8 H (10-20) Glucose 176 H (70-99) mg/dl POC Glucose (other) (70-99) mg/dl Lactate (0.4-2.0) mmol/L Calcium 10.2 H (8.5-10.1) mg/dl POC Ioniz Calcium Roscoe (1.12-1.32) mmol/l Total Bilirubin 1.0 (0.2-1) mg/dl AST 16 (15-37) U/L ALT 20 (12-78) U/L Alkaline Phosphatase 65 (45-117) U/L Total Protein 8.3 H (6.4-8.2) gm/dl Albumin 3.9 (3.4-5.0) gm/dl Globulin 4.4 H (2.5-4.0) gm/dl Albumin/Globulin Ratio 0.9 (0.9-2) Lipase 187 (73-393) U/L Urine Color Dark Yellow Urine Appearance Cloudy A (Clear) Urine pH 5.5 (4.5-7.5) Ur Specific Clover 1.017 (1.000-1.030) Urine Protein 2+ H (Negative) Urine Glucose (UA) Negative (Negative) Urine Ketones Trace H (Negative) Urine Blood 3+ H (Negative) Urine Nitrite Negative (Negative) Urine Bilirubin Negative (Negative) Urine Urobilinogen Negative (Negative) Ur Leukocyte Esterase 3+ H (Negative) Urine WBC (Auto) >30 H (0-5) /hpf Urine RBC (Auto) 10-30 H (0-4) /hpf U Hyaline Cast (Auto) 0 (0-5) /lpf U Epithel Cells (Auto) 5-10 H (0-5) /lpf Urine Bacteria (Auto) 4+ H (Negative) COVID-19 Eval Order SARS-CoV-2 (PCR) (Negative) 08/26/20 08/26/20 08/26/20 Range/Units 15:31 15:42 16:32 WBC (4.8-10.8) K/uL RBC (4.2-5.4) M/uL Hgb (12.0-16.0) g/dL POC Hgb 15.3 (12.0-16.0) g/dl Hct (37-47) % POC Hct 45 (37-47) % MCV (80-100) fL MCH (25-34) pg MCHC (32-36) g/dL RDW Std Deviation (36.4-46.3) fL RDW Coeff of Deloris (11.5-14.5) % Plt Count (130-400) K/uL MPV (7.4-10.4) fL Immature Gran % (Auto) % Neut % (Auto) % Lymph % (Auto) % [place]osa % (Auto) % Eos % (Auto) % Baso % (Auto) % Neut # (Auto) (1.4-6.5) K/uL Lymph # (Auto) (1.2-3.4) K/uL Coosa # (Auto) (0.11-0.59) K/uL Eos # (Auto) (0-0.5) K/uL Baso # (Auto) (0-0.2) K/uL Immature Gran # (Auto) (0.00-0.02) K/uL POC Sodium 131 L (135-144) mmol/L Sodium (136-145) mmol/L POC Potassium 4.0 (3.3-5.0) mmol/L Potassium (3.5-5.1) mmol/L POC Chloride 93 L (101-112) mmol/L Chloride (98-107) mmol/L Carbon Dioxide (21-32) mmol/L POC Total CO2 28 (24-31) mmol/L Anion Gap (3-11) POC Anion Gap 14.0 L (16-25) mmol/L POC BUN 20 H (7-18) mg/dl BUN (7-18) mg/dl Creatinine (0.6-1.2) mg/dl POC Creatinine 0.8 (0.6-1.3) mg/dl Est Cr Clr Drug Dosing ml/min Est GFR ( Amer) ml/min Est GFR (Non-Af Amer) ml/min BUN/Creatinine Ratio (10-20) Glucose (70-99) mg/dl POC Glucose (other) 181 H (70-99) mg/dl Lactate 1.8 (0.4-2.0) mmol/L Calcium (8.5-10.1) mg/dl POC Ioniz Calcium Roscoe 1.24 (1.12-1.32) mmol/l Total Bilirubin (0.2-1) mg/dl AST (15-37) U/L ALT (12-78) U/L Alkaline Phosphatase (45-117) U/L Total Protein (6.4-8.2) gm/dl Albumin (3.4-5.0) gm/dl Globulin (2.5-4.0) gm/dl Albumin/Globulin Ratio (0.9-2) Lipase (73-393) U/L Urine Color Urine Appearance (Clear) Urine pH (4.5-7.5) Ur Specific Clover (1.000-1.030) Urine Protein (Negative) Urine Glucose (UA) (Negative) Urine Ketones (Negative) Urine Blood (Negative) Urine Nitrite (Negative) Urine Bilirubin (Negative) Urine Urobilinogen (Negative) Ur Leukocyte Esterase (Negative) Urine WBC (Auto) (0-5) /hpf Urine RBC (Auto) (0-4) /hpf U Hyaline Cast (Auto) (0-5) /lpf U Epithel Cells (Auto) (0-5) /lpf Urine Bacteria (Auto) (Negative) COVID-19 Eval Order Covid19 at [facility] SARS-CoV-2 (PCR) (Negative) 08/26/20 Range/Units 16:32 WBC (4.8-10.8) K/uL RBC (4.2-5.4) M/uL Hgb (12.0-16.0) g/dL POC Hgb (12.0-16.0) g/dl Hct (37-47) % POC Hct (37-47) % MCV (80-100) fL MCH (25-34) pg MCHC (32-36) g/dL RDW Std Deviation (36.4-46.3) fL RDW Coeff of Deloris (11.5-14.5) % Plt Count (130-400) K/uL MPV (7.4-10.4) fL Immature Gran % (Auto) % Neut % (Auto) % Lymph % (Auto) % [place] % (Auto) % Eos % (Auto) % Baso % (Auto) % Neut # (Auto) (1.4-6.5) K/uL Lymph # (Auto) (1.2-3.4) K/uL [place] # (Auto) (0.11-0.59) K/uL Eos # (Auto) (0-0.5) K/uL Baso # (Auto) (0-0.2) K/uL Immature Gran # (Auto) (0.00-0.02) K/uL POC Sodium (135-144) mmol/L Sodium (136-145) mmol/L POC Potassium (3.3-5.0) mmol/L Potassium (3.5-5.1) mmol/L POC Chloride (101-112) mmol/L Chloride (98-107) mmol/L Carbon Dioxide (21-32) mmol/L POC Total CO2 (24-31) mmol/L Anion Gap (3-11) POC Anion Gap (16-25) mmol/L POC BUN (7-18) mg/dl BUN (7-18) mg/dl Creatinine (0.6-1.2) mg/dl POC Creatinine (0.6-1.3) mg/dl Est Cr Clr Drug Dosing ml/min Est GFR ( Amer) ml/min Est GFR (Non-Af Amer) ml/min BUN/Creatinine Ratio (10-20) Glucose (70-99) mg/dl POC Glucose (other) (70-99) mg/dl Lactate (0.4-2.0) mmol/L Calcium (8.5-10.1) mg/dl POC Ioniz Calcium Roscoe (1.12-1.32) mmol/l Total Bilirubin (0.2-1) mg/dl AST (15-37) U/L ALT (12-78) U/L Alkaline Phosphatase (45-117) U/L Total Protein (6.4-8.2) gm/dl Albumin (3.4-5.0) gm/dl Globulin (2.5-4.0) gm/dl Albumin/Globulin Ratio (0.9-2) Lipase (73-393) U/L Urine Color Urine Appearance (Clear) Urine pH (4.5-7.5) Ur Specific Clover (1.000-1.030) Urine Protein (Negative) Urine Glucose (UA) (Negative) Urine Ketones (Negative) Urine Blood (Negative) Urine Nitrite (Negative) Urine Bilirubin (Negative) Urine Urobilinogen (Negative) Ur Leukocyte Esterase (Negative) Urine WBC (Auto) (0-5) /hpf Urine RBC (Auto) (0-4) /hpf U Hyaline Cast (Auto) (0-5) /lpf U Epithel Cells (Auto) (0-5) /lpf Urine Bacteria (Auto) (Negative) COVID-19 Eval Order SARS-CoV-2 (PCR) NEGATIVE (Negative) Administered Medications Discontinued Medications Acetaminophen (Acetaminophen 325 Mg Tab) 650 mg PO NOW STA Stop: 08/26/20 15:45 Last Admin: 08/26/20 16:15 Dose: 650 mg Documented by: [id number] Ceftriaxone Sodium (Ceftriaxone Sodium 1000mg/50ml D5w) Confirm Administered Dose 1,000 mg IV .STK-MED ONE Stop: 08/26/20 18:13 Last Admin: 08/26/20 18:15 Dose: 1,000 mg Documented by: [id number] Sodium Chloride (Nss 1000ml) 2,000 mls @ 999 mls/hr IV .Q2H1M ONE Stop: 08/26/20 17:25 Last Infusion: 08/26/20 17:58 Dose: 0 mls/hr Documented by: [id number] Admin: 08/26/20 15:38 Dose: 999 mls/hr Documented by: [id number] Piperacillin Sod/Tazobactam Sod (Zosyn) 4.5 gm in 120 mls @ 240 mls/hr IV NOW ONE Stop: 08/26/20 15:55 Last Infusion: 08/26/20 16:16 Dose: 0 mls/hr Documented by: [id number] Admin: 08/26/20 15:39 Dose: 240 mls/hr Documented by: [id number] Sodium Chloride (Nss) 500 mls @ 999 mls/hr IV .Q31M ONE Stop: 08/26/20 18:48 Last Infusion: 08/26/20 19:44 Dose: 0 mls/hr Documented by: [id number] Admin: 08/26/20 18:42 Dose: 999 mls/hr Documented by: [id number] Ioversol (Optiray 320 100ml) 94 ml IV ONCE ONE Stop: 08/26/20 16:05 Last Admin: 08/26/20 16:04 Dose: 94 ml Documented by: [id number] Metoclopramide HCl (Metoclopramide Hcl Inj 5 Mg/Ml 2 Ml Vial) 5 mg IV ONE ONE Stop: 08/26/20 19:32 Last Admin: 08/26/20 19:40 Dose: 5 mg Documented by: [id number] Ondansetron HCl (Ondansetron Inj 2 Mg/Ml 2 Ml Vial) 4 mg IV NOW STA Stop: 08/26/20 15:27 Last Admin: 08/26/20 15:39 Dose: 4 mg Documented by: [id number] Ondansetron HCl (Ondansetron Inj 2 Mg/Ml 2 Ml Vial) 4 mg IV NOW STA Stop: 08/26/20 18:19 Last Admin: 08/26/20 18:40 Dose: 4 mg Documented by: [id number] Imaging Data Radiologist's Impression: Abdomen/Pelvis CT 08/26/20 15:[address] WITH IV CONTRAST CT DOSE: 569.82 mGy.cm HISTORY: Lower abdominal pain. sepsis TECHNIQUE: Multiaxial CT images of the abdomen and pelvis were performed following the use of intravenous contrast. A dose lowering technique was utilized adhering to the principles of ALARA. COMPARISON STUDY: Abdomen and pelvis CT 03/21/2013. FINDINGS: The lung bases are clear. No pneumoperitoneum. No pneumatosis. No suspicious lytic or blastic osseous lesions. There is a tiny hiatus hernia. Hepatic steatosis. Cholecystectomy. The main portal vein is patent. The pancreas, spleen, and adrenal glands are unremarkable. Prior sigmoid anastomosis. The cecum is located within the midabdomen. Fluid-filled nondilated large and small bowel. There are few punctate stones within the left kidney. There is heterogeneous enhancement within the right kidney with mild perinephric fat stranding. There is also mild urothelial thickening within the right renal pelvis and right ureter. There is mild bladder wall thickening. There are few punctate foci of gas within the bladder lumen. The uterus and bilateral adnexa are within normal limits. No pelvic free fluid. Normal appendix. No retroperitoneal lymphadenopathy. Normal caliber abdominal aorta. Evidence for pr ior ventral mesh hernia repair. IMPRESSION: 1. Heterogeneous enhancement within the right kidney with mild right perinephric fat stranding. There is also urothelial enhancement within the right renal collecting system and right ureter. Findings likely represent a right-sided pyelonephritis/pyelitis. Recommend correlation with urinalysis. 2. Left-sided nephrolithiasis. No ureteral stones. No hydronephrosis.. 3. Mild bladder wall thickening. There are few punctate foci of gas within the bladder lumen. This could be due to recent catheterization. A cystitis could also a similar appearance. 4. No bowel wall thickening or obstruction. 5. Normal appendix. ACT 112: Negative or not required by law. Electronically signed by: Anatoliy Connors M.D. 08/26/2020 4:16 PM Discharge Plan Visit Data Chief Complaint: GI Assessment Stated Complaint: PCP REF FEVER NAUSEA ED Provider: Julio Corea Discharge Problem: Sepsis, Leukocytosis, Pyelonephritis, Acute hyponatremia, Vomiting Forms Stand Alone Forms: My [employer] Prescriptions Prescriptions: No Action lisinopril-hydrochlorothiazide 20-12.5 mg tablet 1 tab PO BID RF: 0 levothyroxine [Synthroid] 25 mcg tablet 25 mcg PO QAM RF: 0 alprazolam 0.5 mg tablet 0.5 mg PO HS RF: 0 Discharge Problem: Sepsis Qualifiers: Sepsis type: sepsis due to unspecified organism Sepsis acute organ dysfunction status: unspecified Qualified Code(s): A41.9 - Sepsis, unspecified organism Leukocytosis Qualifiers: Leukocytosis type: unspecified Qualified Code(s): D72.829 - Elevated white blood cell count, unspecified Vomiting Qualifiers: Vomiting type: unspecified Vomiting Intractability: unspecified Nausea presence: unspecified Qualified Code(s): R11.10 - Vomiting, unspecified
[2020-08-26 15:49] LABS: Appearance Urine Cloudy (Clear); Bacteria Urine Automated 4+ (Negative); Bilirubin Urine Negative (Negative); Blood Urine 3+ (Negative); Cast Urine Automated 0 /lpf (0-5); Color Urine Dark Yellow; Glucose Urine UA Negative (Negative); Ketones Urine Trace (Negative); Leukocyte Esterase Urine 3+ (Negative); Nitrite Urine Negative (Negative); Protein Urine 2+ (Negative); Specific Gravity Urine 1.017 (1.000-1.030); Urobilinogen Urine Negative (Negative); WBC Urine Automated >30 /hpf (0-5); pH Urine 5.5 (4.5-7.5)
[2020-08-26 15:49] LABS: Basophils # (auto) 0.02 K/uL (0-0.2); Basophils % (auto) 0.1 %; Hematocrit (blood only) 41.9 % (37-47); Hemoglobin 14.7 g/dL (12.0-16.0); Immature Granulocytes # (auto) 0.04 K/uL (0.00-0.02); Immature Granulocytes % (auto) 0.2 %; Lymphocytes % (auto) 10.6 %; Mean Corpuscular Hemoglobin 31.3 pg (25-34); Mean Corpuscular Hgb Conc 35.1 g/dL (32-36); Mean Corpuscular Volume 89.1 fL (80-100); Monocytes % (auto) 9.3 %; Neutrophils # (auto) 12.79 K/uL (1.4-6.5); Neutrophils % (auto) 79.8 %; Platelet Count 193 K/uL (130-400); RDW Coefficient of Variation 12.9 % (11.5-14.5); RDW Standard Deviation 42.3 fL (36.4-46.3); White Blood Count 16.05 K/uL (4.8-10.8)
[2020-08-26 15:55] LABS: iSTAT Creatinine 0.8 mg/dl (0.6-1.3); iSTAT Hemoglobin 15.3 g/dl (12.0-16.0); iSTAT Ionized Calcium 1.24 mmol/l (1.12-1.32)
[2020-08-26] MEDS ORDERED: OPTIRAY 320 100ml IV ONE (16:04)
[2020-08-26 16:09] LABS: Albumin Level 3.9 gm/dl (3.4-5.0); BUN Creatinine Ratio 21.8 (10-20); Calcium 10.2 mg/dl (8.5-10.1); Creatinine Clr Calc Pharmacy 71.4 ml/min; Est GFR (African American) 83.4 ml/min; Est GFR (Non-African American) 71.9 ml/min; Potassium 3.9 mmol/L (3.5-5.1)
[2020-08-26 16:12] LABS: Albumin Globulin Ratio 0.9 (0.9-2); Globulin 4.4 gm/dl (2.5-4.0); Total Protein 8.3 gm/dl (6.4-8.2)
--- NOTE | 2020-08-26 16:18 | CT Scan Report ---
ABDOMEN AND PELVIS CT WITH IV CONTRAST CT DOSE: 569.82 mGy.cm HISTORY: Lower abdominal pain. sepsis TECHNIQUE: Multiaxial CT images of the abdomen and pelvis were performed following the use of intrave nous contrast. A dose lowering technique was utilized adhering to the principles of ALARA. COMPARISON STUDY: Abdomen and pelvis CT 03/21/2013. FINDINGS: The lung bases are clear. No pneumoperitoneum. No pneumatosis. No suspicious lytic or blast ic osseous lesions. There is a tiny hiatus hernia. Hepatic steatosis. Cholecystectomy. The main danielle l vein is patent. The pancreas, spleen, and adrenal glands are unremarkable. Prior sigmoid anastomosi s. The cecum is located within the midabdomen. Fluid-filled nondilated large and small bowel. There a re few punctate stones within the left kidney. There is heterogeneous enhancement within the right ki dney with mild perinephric fat stranding. There is also mild urothelial thickening within the right r enal pelvis and right ureter. There is mild bladder wall thickening. There are few punctate foci of g as within the bladder lumen. The uterus and bilateral adnexa are within normal limits. No pelvic free fluid. Normal appendix. No retroperitoneal lymphadenopathy. Normal caliber abdominal aorta. Evidence for prior ventral mesh hernia repair. IMPRESSION: 1. Heterogeneous enhancement within the right kidney with mild right perinephric fat stranding. There is also urothelial enhancement within the right renal collecting system and right ureter. Findings l ikely represent a right-sided pyelonephritis/pyelitis. Recommend correlation with urinalysis. 2. Left-sided nephrolithiasis. No ureteral stones. No hydronephrosis.. 3. Mild bladder wall thickening. There are few punctate foci of gas within the bladder lumen. This co uld be due to recent catheterization. A cystitis could also a similar appearance. 4. No bowel wall thickening or obstruction. 5. Normal appendix. ACT 112: Negative or not required by law. Electronically signed by: Anatoliy Connors M.D. 08/26/2020 4:16 PM
--- NOTE | 2020-08-26 17:40 | History & Physical Report ---
Date of Service August 26, 2020 Assessment & Plan (1) Pyelonephritis: 59 y/o F Hx HTN, hypothyroid, DM II. She has had R flank pain, nausea, vomiting and fevers for 3 days. She denies dysuria and thought she might have enteritis. She was febrile on arrival to the ER and a CT abdomen confirmed R pyelonephritis and cystitis. Labs were notable for leukocytosis, hyponatremia and hyperglycemia. 1) The pt's lactic is negative and her BP is stable. She will be placed on ceftriaxone. Would consider DC if she is tolerating PO and has defervesced. IVF, antiemetics provided. 2) Hyponatremia - hypovolemic - IVF provided - recheck BMP AM. 3) DM - she does not want treatment which was offered - place on DM diet when tolerating PO 4) HTN - cont Lisinopril 5) Hypothyroidism - cont Synthroid Full code - Lovenox prophylaxis Total time for this admit including review of labs, meds, imaging, records - discussion with pt and ER attending - 40 min (2) Hypothyroid: (3) HTN (hypertension): (4) Diabetes: (5) Hyponatremia: History of Present Illness Chief Complaint: Nausea, vomiting, fevers Primary Care Provider: BUBBA Hill 59 y/o F Hx HTN, hypothyroid, DM II. She has had R flank pain, nausea, vomiting and fevers for 3 days. She denies dysuria and thought she might have enteritis. She was febrile on arrival to the ER and a CT abdomen confirmed R pyelonephritis and cystitis. Labs were notable for leukocytosis, hyponatremia and hyperglycemia. PMH: 1) HTN 2) Hypothyroidism 3) DM II - controls with diet and herbal treatment Surgical: 1) Cholecystectomy 2) Colonic resection for diverticulitis 3) Hernia x 2 Social: Does not smoke - occasional ETOH Family: Father due to lymphoma and PE Allergies Allergy/AdvReac Type Severity Reaction Status Date / Time shellfish derived Allergy Severe Anaphylaxis Unverified 08/26/20 16:41 morphine Allergy Intermediate RASH Verified 08/26/20 16:41 Home Medications Medication Instructions Recorded Confirmed Type alprazolam 0.5 mg PO HS 08/26/20 08/26/20 History levothyroxine [Synthroid] 25 mcg PO QAM 08/26/20 08/26/20 History lisinopril-hydrochlorothiazide 1 tab PO BID 08/26/20 08/26/20 History Past Med/Surg History Social History Smoking Status: Never smoker Preferred Language: Ug[place]an Feels Safe at Home: Yes Review of Systems Review of Systems: Gen: + Fevers ENT: Denies congestion, throat pain, hearing loss Eyes: Denies acute visual changes CV: Denies CP, palpitations Pulmonary: Denies SOB, cough, wheezing GI: + Nausea and vomiting, R flank and LLQ pain Neuro: Denies acute or unilateral weakness, acute gait impairment, headache or acute visual changes Musculoskeletal: Denies joint pain, inflammation Endocrine: Denies polydipsia, polyuria Skin: Denies acute rashes or ulcers Physical Exam Physical Exam: General: AAO x 3, no distress ENT: No erythema or exudates, no thrush Eyes: SANJIV, EOMI Head and neck: Normocephalic, atraumatic, No JVD, neck is supple. Chest/heart: Nontender, S1,2, RRR, no murmurs, no gallops Lungs: CTAB, no wheezing or crackles Abdomen: Nontender, nondistended, BS+ - mild tenderness of L flank with palpation Neuro: AAO x 3, speech is clear, no unilateral weakness or loss of sensation, coordination intact Musculoskeletal: No joint inflammation, muscle tenderness, FROM Skin: No acute rashes or ulcers Extremities: No clubbing, cyanosis, edema Results & Data Results & Data ([facility]) Vital Signs (Past 12 Hours) Vital Signs Temp Pulse Pulse Resp BP BP Pulse Ox 08/26/20 17:20 99.1 F 08/26/20 17:00 102 H 23 121/68 93 08/26/20 16:45 105 H 18 108/66 93 08/26/20 16:30 104 H 19 122/67 96 08/26/20 16:15 109 H 18 91 08/26/20 16:12 108 H 14 95 08/26/20 15:35 117 H 20 139/89 92 08/26/20 15:30 100.8 F H 123 H 22 139/89 94 08/26/20 14:25 99.7 F H 127 H 18 142/88 H 95 PG Care Time/CCT Total # of Minutes Spent Total Time Spent with Patient: Total time spent is greater than 50% in coordination of care (as documented) at patient's floor/unit and/or counseling patient: Coding Level of Care Code 84797 Initial Inpt Care Lvl 3 Diagnoses Pyelonephritis N12 Hypothyroid E03.9 HTN (hypertension) I10 Diabetes E11.9 Hyponatremia E87.1
[2020-08-26] MEDS ORDERED: cefTRIAXone SODIUM 1000MG/50ML D5W IV ONE (18:12)
[2020-08-26] MEDS ORDERED: SODIUM CHLORIDE 0.9% 500 ML IV ONE (18:18)
[2020-08-26] MEDS ORDERED: METOCLOPRAMIDE HCL INJ 5 MG/ML 2 ML VIAL IV ONE (19:31)
[2020-08-26] MEDS ORDERED: ONDANSETRON INJ 2 MG/ML 2 ML VIAL IV PRN (20:42)
[2020-08-26] MEDS ORDERED: ALPRAZolam 0.5 MG TABLET PO SCH (21:00)
[2020-08-26] MEDS: SODIUM CHLORIDE 0.9% 1000ML 1,000 ML IV SCH (22:00)
[2020-08-26] MEDS: LISINOPRIL/HCTZ 20/12.5MG 1 TAB TAB PO SCH (22:01)
[2020-08-27] MEDS: SODIUM CHLORIDE 0.9% 1000ML 1,000 ML IV SCH (05:40)
[2020-08-27] MEDS: LEVOTHYROXINE SODIUM 25 MCG TABLET PO SCH (05:40)
[2020-08-27 07:49] LABS: Basophils # (auto) 0.01 K/uL (0-0.2); Basophils % (auto) 0.1 %; Eosinophils # (auto) 0.02 K/uL (0-0.5); Eosinophils % (auto) 0.2 %; Hematocrit (blood only) 33.9 % (37-47); Hemoglobin 11.6 g/dL (12.0-16.0); Immature Granulocytes # (auto) 0.02 K/uL (0.00-0.02); Immature Granulocytes % (auto) 0.2 %; Lymphocytes # (auto) 1.22 K/uL (1.2-3.4); Lymphocytes % (auto) 11.6 %; Mean Corpuscular Hemoglobin 30.4 pg (25-34); Mean Corpuscular Hgb Conc 34.2 g/dL (32-36); Mean Platelet Volume 10.7 fL (7.4-10.4); Monocytes # (auto) 0.94 K/uL (0.11-0.59); Neutrophils # (auto) 8.28 K/uL (1.4-6.5); Neutrophils % (auto) 78.9 %; Platelet Count 148 K/uL (130-400); RDW Coefficient of Variation 13.3 % (11.5-14.5); RDW Standard Deviation 43.5 fL (36.4-46.3); Red Blood Count 3.81 M/uL (4.2-5.4); White Blood Count 10.49 K/uL (4.8-10.8)
--- NOTE | 2020-08-27 07:51 | Hospitalist Progress Note ---
Date of Service August 27, 2020 Assessment & Plan (1) Pyelonephritis: 59 y/o F ONHx of HTN, hypothyroidism, DM II, and distant hx of UTIs who presented w/ 3 days of R flank pain, LLQ pain, nausea, vomiting, and fevers (up to 102.4F) secondary to R pyelo and gram neg bacteremia. Stable. sepsis secondary to right pyelonephritis with resultant bacteremia - improving on abx. fever 38.2C on admission, no reoccurence of fever since - leukocytosis at admission since resolved - R pyelo per CT - 08/26 prelim UC 100k+ CFU gram neg bacilli - 08/26 prelim 1/2 BC gram neg bacilli - neg lactate - continue empiric IV ceftriaxone q24, will narrow when sensitivities result. anticipate total of 2 wk course L nephrolithiasis - per CT - likely asymptomatic and less consistent w/ patient's LLQ pain which seemed to have improved after abx hyponatremia - asymptomatic - s/p IVF at admission - IVF since discontinued to prevent overcorrection as the Na corrected from 129 to 136 overnight diabetes - no A1C in our records - patient declined SSI - 170s at admission, 110s AM glucose, stable anxiety - home med Xanax 0.5 mg qhs prn per records review - changed scheduled order to prn hypertension - stable, continue home lisinopril hypothyroidism - stable, continue home Synthroid FEN/GI: DM2 diet. No IV fluids. Full code dvt ppx: Lovenox prophylaxis dispo: med/surg. dispo waiting on culture sensitivities (2) Hypothyroid: (3) HTN (hypertension): (4) Diabetes: (5) Hyponatremia: (6) Leukocytosis: (7) Sepsis: (8) Flank pain: Admission and Anticipated Discharge Date Admission Date: August 26, 2020 Supervising Physician Co-Signing Physician Notes I personally examined the patient and verified all wall points of history and exam, discussed case, and agree with decision making with Dr Henry. Feeling much better. Still has some right flank pain, much less nausea. Able to eat some. Otherwise feeling better too. Vitals noted, in general she is awake and alert pleasant no distress. HEENT normocephalic atraumatic mucous membranes moist. Breathing unlabored no accessory muscle use good effort. Abdomen is soft she does have right flank CVA tenderness, none on the left. No rashes no pallor or icterus. Pyelonephritis with sepsis/bacteremia present on admissionfortunately improving. Continue ceftriaxone pending full identification/sensitivities. Hopefully home tomorrow. Outlined diagnosis in detail to the patient. Otherwise as above. Subjective Presenting sxs at admission were LLQ pain and R flank pain w/ occasional diffuse abd pain. . She had associated nausea, fever/chills, SIMMONS, vomiting, myalgia, fatigue, but no dysuria. This AM, her symptoms are much improved, the pain is 3/10 instead of 8/10. She has slight SIMMONS but denies other associated symptoms. Review of Systems Review of Systems: All systems reviewed & are unremarkable except as noted in HPI & below Physical Exam Physical Exam: General: Grossly A&O. NAD. Cooperative. HEENT: Atraumatic, normocephalic. Pulm: CTAB. -wheezes, -rales, -rhonchi. No respiratory distress. Cardiac: RRR, -mrg. Abdominal: Nontender, nondistended, soft. Back: + R CVA ttp Results & Data Results & Data ([facility]) Vital Signs (Past 12 Hours) Vital Signs Temp Pulse Pulse Resp BP Pulse Ox 08/27/20 07:44 37.7 C H 90 18 99/64 L 93 08/26/20 23:35 36.6 C 92 H 18 98/62 L 95 08/26/20 22:05 37.3 C 117 H 164/83 H 93 08/26/20 19:59 37.3 C Resident Activity Tracking Resident Involvement: Resident Care Provided Care Provided: Adult Hospital Medicine (1) Leukocytosis Leukocytosis type: unspecified Qualified Code(s): D72.829 - Elevated white blood cell count, unspecified (2) Sepsis Sepsis acute organ dysfunction status: unspecified Sepsis type: sepsis due to unspecified organism Qualified Code(s): A41.9 - Sepsis, unspecified organism
[2020-08-27 08:15] LABS: BUN Creatinine Ratio 22.2 (10-20); Calcium 8.9 mg/dl (8.5-10.1); Creatinine Clr Calc Pharmacy 97.7 ml/min; Est GFR (African American) 112.6 ml/min; Est GFR (Non-African American) 97.2 ml/min; Magnesium 1.9 mg/dl (1.8-2.4); Potassium 3.5 mmol/L (3.5-5.1)
[2020-08-27] MEDS: ENOXAPARIN INJ 40 MG/0.4 ML SYR SQ SCH (08:53)
[2020-08-27] MEDS: LISINOPRIL/HCTZ 20/12.5MG 1 TAB TAB PO SCH ×2 (08:54→21:29)
--- NOTE | 2020-08-27 15:58 | Billing Data ---
Date of Service August 27, 2020 Coding Level of Care Code 22655 Subseq Hosp Care Lvl 3
[2020-08-27] MEDS ORDERED: cefTRIAXone SODIUM 1,000 MG in DEXTROSE 5% 50 ML IV SCH (18:00)
[2020-08-27] MEDS ORDERED: METOCLOPRAMIDE HCL 5 MG TABLET PO PRN (19:45)
[2020-08-27] MEDS: ACETAMINOPHEN 500 MG TAB PO PRN (21:31)
[2020-08-27] MEDS: ALPRAZolam 0.5 MG TABLET PO PRN (21:31)
[2020-08-28] MEDS: LEVOTHYROXINE SODIUM 25 MCG TABLET PO SCH (05:50)
[2020-08-28 06:05] LABS: Basophils # (auto) 0.01 K/uL (0-0.2); Basophils % (auto) 0.1 %; Eosinophils # (auto) 0.04 K/uL (0-0.5); Eosinophils % (auto) 0.6 %; Hematocrit (blood only) 34.2 % (37-47); Hemoglobin 11.4 g/dL (12.0-16.0); Immature Granulocytes # (auto) 0.01 K/uL (0.00-0.02); Immature Granulocytes % (auto) 0.1 %; Lymphocytes # (auto) 0.87 K/uL (1.2-3.4); Lymphocytes % (auto) 12.6 %; Mean Corpuscular Hemoglobin 30.3 pg (25-34); Mean Corpuscular Hgb Conc 33.3 g/dL (32-36); Mean Platelet Volume 10.6 fL (7.4-10.4); Monocytes # (auto) 0.87 K/uL (0.11-0.59); Monocytes % (auto) 12.6 %; Neutrophils # (auto) 5.12 K/uL (1.4-6.5); Platelet Count 160 K/uL (130-400); RDW Coefficient of Variation 13.1 % (11.5-14.5); Red Blood Count 3.76 M/uL (4.2-5.4); White Blood Count 6.92 K/uL (4.8-10.8)
[2020-08-28 06:29] LABS: BUN Creatinine Ratio 22.9 (10-20); Creatinine Clr Calc Pharmacy 93.4 ml/min; Est GFR (Non-African American) 95.7 ml/min; Potassium 3.4 mmol/L (3.5-5.1)
[2020-08-28] MEDS ORDERED: POTASSIUM CHLORIDE CRTAB 20 MEQ TABCR PO STA (06:49)
--- NOTE | 2020-08-28 07:07 | Hospitalist Progress Note ---
Date of Service August 28, 2020 Assessment & Plan (1) Pyelonephritis: 59 y/o F ONHx of HTN, hypothyroidism, DM II, and distant hx of UTIs who presented w/ 3 days of R flank pain, LLQ pain, nausea, vomiting, and fevers (up to 102.4F) secondary to R pyelo and gram neg bacteremia. R sided Pyelonephritis and Bacteremia secondary to roberts-sensitive E. Coli -No fever since admission, though patient continuing with chills overnight -R pyelonephritis per CT ab/pelv -Urine culture growing roberts-sensitive E. Coli -IV Ceftriaxone q24h, will transition in AM to Ciprofloxacin 500mg BID x7 days for total 9 day of antibiotic therapy -Blood cultures with gram neg bacilli, suspect e coli as above L Nephrolithiasis -Noted incidentally on CT -Without ureteral stones or hydronephrosis -Unlikely related to current abdominal pain Hyponatremia - Resolved -Hyponatremic on admission with Na 129, since resolved DM2 -Continue to monitor glucose -Will add SSI if needed Anxiety -Continue home Xanax 0.5mg qhs PRN HTN -Continue home Lisinopril/HCTZ -Continue to monitor renal function as infection improves -Cr 0.68 at this time Hypothyroidism -Continue home Synthroid FEN/GI: DM2 diet. CODE: Full code dvt ppx: Lovenox prophylaxis dispo: med/surg, anticipate dc tomorrow on oral abx (2) Hypothyroid: (3) HTN (hypertension): (4) Diabetes: (5) Hyponatremia: (6) Leukocytosis: (7) Sepsis: (8) Flank pain: Admission and Anticipated Discharge Date Admission Date: August 26, 2020 Supervising Physician Co-Signing Physician Notes I personally supervised Naseem Ballesteros DO on this patient's care. I interviewed and examined the patient independently of him. 59yo w/ r. pyelonephritis. Reports feeling very "wiped out" and tired today. R. flank still quite tender to even mild palpation/percussion. Had subjective fevers/chills overnight, though max temp was 37.7 in the afternoon. Will keep another night on IV abx. Presently abx are appropriate for her urine culture, though blood culture still pending species and sensitivities. Will re- culture with any further fever and consider re-imaging as needed. Subjective Patient evaluated at the bedside. Noting improving in her RLQ pain, though still having LLQ abdominal pain. She notes that her nausea had significantly improved. Is interested in going home, though hesitant. Overnight feels she had chills and sweats, though did not feel feverish. No chest pain, SOB. Review of Systems Review of Systems: All systems reviewed & are unremarkable except as noted in Subjective Physical Exam Constitutional: WD/WN, vitals as above Eyes: PERRL, conjunctivae normal, anicteric sclerae Neck: trachea midline, no thyromegaly Respiratory: normal respiratory effort, lungs clear to auscultation Cardiovascular: RRR, no murmur, no edema Gastrointestinal (Abdomen): Inspection/Auscultation: abdomen normal to inspection and normal bowel sounds; abdomen not distended Percussion/Palpation: + abdomen tender (LLQ tenderness ) and abdomen soft Skin: Mild redness and irritation below L breast Psychiatric: A+Ox3, euthymic affect Genitourinary: + CVA tenderness (R CVA tenderness ) Results & Data Results & [facility] ([facility]) Vital Signs (Past 12 Hours) Vital Signs Temp Pulse Resp BP BP Pulse Ox 08/28/20 02:31 36.3 C L 08/27/20 23:57 36.6 C 77 18 98/60 L 96 08/27/20 19:56 85 112/71 97 Resident Activity Tracking Resident Involvement: Resident Care Provided Care Provided: Adult Hospital Medicine (1) Leukocytosis Leukocytosis type: unspecified Qualified Code(s): D72.829 - Elevated white blood cell count, unspecified (2) Sepsis Sepsis acute organ dysfunction status: unspecified Sepsis type: sepsis due to unspecified organism Qualified Code(s): A41.9 - Sepsis, unspecified organism
[2020-08-28] MEDS: AMOXICILLIN/CLAVULANATE 875 MG TAB PO SCH ×2 (07:59→09:14)
[2020-08-28] MEDS: ACETAMINOPHEN 500 MG TAB PO PRN ×2 (07:59→20:33)
[2020-08-28] MEDS: LISINOPRIL/HCTZ 20/12.5MG 1 TAB TAB PO SCH ×3 (09:06→21:53)
[2020-08-28] MEDS: ENOXAPARIN INJ 40 MG/0.4 ML SYR SQ SCH (09:07)
--- NOTE | 2020-08-28 14:43 | Billing Data ---
Date of Service August 28, 2020 Coding Level of Care Code 68199 Initial Inpt Care Lvl 2
[2020-08-28] MEDS ORDERED: cefTRIAXone SODIUM 1,000 MG in DEXTROSE 5% 50 ML IV SCH (20:00)
[2020-08-28] MEDS: ALPRAZolam 0.5 MG TABLET PO PRN (21:55)
[2020-08-29] MEDS: LEVOTHYROXINE SODIUM 25 MCG TABLET PO SCH (05:27)
[2020-08-29 06:03] LABS: Basophils # (auto) 0.01 K/uL (0-0.2); Basophils % (auto) 0.2 %; Eosinophils # (auto) 0.13 K/uL (0-0.5); Eosinophils % (auto) 2.1 %; Hematocrit (blood only) 34.5 % (37-47); Hemoglobin 11.7 g/dL (12.0-16.0); Immature Granulocytes # (auto) 0.02 K/uL (0.00-0.02); Immature Granulocytes % (auto) 0.3 %; Lymphocytes # (auto) 1.35 K/uL (1.2-3.4); Mean Corpuscular Hemoglobin 29.8 pg (25-34); Mean Corpuscular Hgb Conc 33.9 g/dL (32-36); Mean Platelet Volume 10.2 fL (7.4-10.4); Monocytes # (auto) 0.87 K/uL (0.11-0.59); Monocytes % (auto) 14.2 %; Neutrophils # (auto) 3.76 K/uL (1.4-6.5); Neutrophils % (auto) 61.2 %; Platelet Count 195 K/uL (130-400); RDW Coefficient of Variation 13.1 % (11.5-14.5); RDW Standard Deviation 42.4 fL (36.4-46.3); Red Blood Count 3.92 M/uL (4.2-5.4); White Blood Count 6.14 K/uL (4.8-10.8)
[2020-08-29 06:27] LABS: BUN Creatinine Ratio 25.3 (10-20); Creatinine Clr Calc Pharmacy 107.7 ml/min; Est GFR (African American) 116.3 ml/min; Est GFR (Non-African American) 100.3 ml/min; Potassium 3.5 mmol/L (3.5-5.1)
[2020-08-29] MEDS ORDERED: AMOXICILLIN/CLAVULANATE 875 MG TAB PO SCH (08:00)
[2020-08-29] MEDS ORDERED: CIPROFLOXACIN 500 MG TAB PO SCH (09:00)
--- NOTE | 2020-08-29 09:24 | Ultrasound Report ---
US renal/blad retro comp HISTORY: 59 years-old Female screen renal abscess b/l acute bilateral flank pain COMPARISON: CT abdomen pelvis 08/26/2020 TECHNIQUE: Multiple real-time sonographic images of the kidneys and urinary bladder were obtained ass essing grayscale appearance and color flow FINDINGS: The right kidney measures 12.5 x 5.0 x 5.8 cm. No right-sided renal calculi, hydronephrosis or perine phric fluid collection. The left kidney measures 12.2 x 5.3 x 5.5 cm. Nonobstructing calculi of the inferior pole left kidney conglomerate measure up to 6 mm. No left-sided renal calculi, hydronephrosis or suspicious mass lesi on. Unremarkable urinary bladder. Ureteral jets not identified. IMPRESSION: 1. Nonobstructing left nephrolithiasis. No hydronephrosis. 2. Unremarkable sonographic appearance of the right kidney. ACT 112: Negative or not required by law. The above report was generated using voice recognition software. It may contain grammatical, syntax o r spelling errors. Electronically signed by: Thee Ro M.D. 08/29/2020 9:22 AM
[2020-08-29] MEDS: LISINOPRIL/HCTZ 20/12.5MG 1 TAB TAB PO SCH (09:48)
[2020-08-29] MEDS: ENOXAPARIN INJ 40 MG/0.4 ML SYR SQ SCH (09:49)
--- NOTE | 2020-08-29 09:56 | Discharge Summary ---
Date of Service August 29, 2020 Admission HPI Per Admitting Provider 59 y/o F Hx HTN, hypothyroid, DM II. She has had R flank pain, nausea, vomiting and fevers for 3 days. She denies dysuria and thought she might have enteritis. She was febrile on arrival to the ER and a CT abdomen confirmed R pyelonephritis and cystitis. Labs were notable for leukocytosis, hyponatremia and hyperglycemia. PMH: 1) HTN 2) Hypothyroidism 3) DM II - controls with diet and herbal treatment Surgical: 1) Cholecystectomy 2) Colonic resection for diverticulitis 3) Hernia x 2 Social: Does not smoke - occasional ETOH Family: Father due to lymphoma and PE Admission Exam Per Admitting Provider General: AAO x 3, no distress ENT: No erythema or exudates, no thrush Eyes: SANJIV, EOMI Head and neck: Normocephalic, atraumatic, No JVD, neck is supple. Chest/heart: Nontender, S1,2, RRR, no murmurs, no gallops Lungs: CTAB, no wheezing or crackles Abdomen: Nontender, nondistended, BS+ - mild tenderness of L flank with pa lpation Neuro: AAO x 3, speech is clear, no unilateral weakness or loss of sensation, coordination intact Musculoskeletal: No joint inflammation, muscle tenderness, FROM Skin: No acute rashes or ulcers Extremities: No clubbing, cyanosis, edema Principal Diagnosis R Pyelonephritis Discharge Exam Constitutional WD/WN, vitals as above Eyes PERRL, conjunctivae normal, anicteric sclerae Neck trachea midline, no thyromegaly Respiratory normal respiratory effort, lungs clear to auscultation Cardiovascular RRR, no murmur, no edema Gastrointestinal (Abdomen) Inspection/Auscultation: abdomen normal to inspection and normal bowel sounds; abdomen not distended Percussion/Palpation: + abdomen tender (mild TTP LLQ, improved ) and abdomen soft; no guarding and abdomen not rigid Musculoskeletal no cyanosis or clubbing, extremities motor strength 5/5 Skin no rashes, warm and dry Neurologic moves all extremities Psychiatric A+Ox3, euthymic affect Genitourinary no CVA tenderness (CVA tenderness on R resolved) Discharge Data Allergies Allergy/AdvReac Type Severity Reaction Status Date / Time shellfish derived Allergy Severe Anaphylaxis Unverified 08/26/20 16:41 morphine Allergy Intermediate RASH Verified 08/26/20 16:41 acesulfame Allergy Unknown Unknown Verified 08/27/20 18:28 aspartame Allergy Unknown Unknown Verified 08/27/20 18:28 Fish Containing Products Allergy Unknown Unknown Verified 08/27/20 13:12 saccharin Allergy Unknown Unknown Verified 08/27/20 18:28 sucralose Allergy Unknown Unknown Verified 08/27/20 18:28 Consultations 08/26/20 16:22 ED Decision to Admit Stat Ordered Studies 08/26/20 15:19 CT abd pelvis IV con only Stat 08/29/20 07:39 US renal/blad retro comp Stat Hospital Course (1) Pyelonephritis: 59 y/o F ONHx of HTN, hypothyroidism, DM II, and distant hx of UTIs who presented w/ 3 days of R flank pain, LLQ pain, nausea, vomiting, and fevers (up to 102.4F) secondary to R pyelo and gram neg bacteremia. R sided Pyelonephritis and Bacteremia secondary to roberts-sensitive E. Coli -Patient did have fever night of 08/28/20 with Tmax 38.1C that has since resolved -R pyelonephritis per CT ab/pelv -Urine culture growing roberts-sensitive E. Coli -Blood cultures growing roberts-sensitive E. Coli as well, repeats were taken due to fever, patient to be contacted once results -Renal US without abscess, notable for unchanged L renal stone without hydronephrosis -IV Ceftriaxone q24h x2 doses -Transitioned to Ciprofloxacin 500mg BID x10 days to be continued on discharge L Nephrolithiasis -Noted incidentally on CT and Renal US -Without ureteral stones or hydronephrosis -Unlikely related to current abdominal pain Hyponatremia - Resolved -Hyponatremic on admission with Na 129, since resolved DM2 -Continued to monitor glucose -F/U outpatient Anxiety -Continued home Xanax 0.5mg qhs PRN HTN -Continued home Lisinopril/HCTZ -Monitored renal function as infection improved - stable Hypothyroidism -Continued home Synthroid (2) Hypothyroid: (3) HTN (hypertension): (4) Diabetes: (5) Hyponatremia: (6) Leukocytosis: (7) Sepsis: (8) Flank pain: Total Time Total Time Spent Total Time Spent (In Minutes): 35 Discharge Plan Discharge Items Patient Disposition: Home - Self-Care Reason For Visit: PCP REF FEVER NAUSEA Discharge Diagnosis: R sided Pyelonephritis Activity: Per Instructions section Non-emergency contact: Primary Care Provider Call non-emergency contact if: you have any medication questions, your symptoms worsen and your temperature is above 101 Follow-up/Referrals: Edelmira Ayala CRNP [Primary Care Provider] - Diet: Regular Addtl Attending Provider Instructions: Ms. Hill, It was our pleasure caring for you at [facility] from 08/26- 08/29/20 in regards to your R sided pyelonephritis (kidney infection). While here you underwent a CT scan that showed infection in your R kidney. You were started on IV antibiotics and after 2 days of IV antibiotics improved greatly. You were also screened with ultrasound for an abscess (collection of bacteria) on your kidneys which was negative. No abscess was found. There was a kidney stone noted on your L side, however, it was currently not moving nor obstructing any of your kidney, ureter, or bladder. You were switched to oral antibiotics to complete a 10 day course of Ciprofloxacin 500mg twice a day. Please follow the below instructions: 1) supervisor mapping and complete your course of Ciprofloxacin 500mg twice a day by mouth x10 total days. Your first dose at home will be tonight and then for another 9 days. 2) Please follow up with your PCP in the next 1-2 weeks 3) If your symptoms return or your fever worsens, please return to the ED for reevaluation. Pending Studies at Discharge: No Stand-Alone Forms: [facility], Smoking Cessation Medications and DC Order Prescriptions: New ciprofloxacin HCl 500 mg Tablet 500 mg PO BID 9 Days Qty: 19 RF: 0 Continued lisinopril-hydrochlorothiazide 20-12.5 mg tablet 1 tab PO BID RF: 0 levothyroxine [Synthroid] 25 mcg tablet 25 mcg PO QAM RF: 0 alprazolam 0.5 mg tablet 0.5 mg PO HS RF: 0 Discharge Orders: Discharge Order (Routine); Ordered 08/29/20 Ordered By: Naseem Boo/Other Patient Handouts: Understanding Post Sepsis Syndrome, Diabetes and Kidney Disease, Understanding Sepsis, ED Pyelonephritis, Female (Adult) Admission Data Admit Date/Time: 08/26/20 18:24 Attending Provider: Nitin Rodriguez Admit Provider: Anil Sanchez Primary Care Provider: Edelmira Ayala Other Providers: Anil Sanchez Other Interventions: Discharge Summary Assessment (RN) Last Done: 08/29/20 11:08 Supervising Physician Co-Signing Physician Notes I personally supervised Naseem Ballesteros DO on this patient's care. I interviewed and examined the patient independently of him. 59 yo w/ r. pyelonephritis. Reports feeling much better today. Did have a fever to 38.1 yesterday, but renal ultrasound shows no abscess or other concerning finding. Blood cultures back as well which confirm roberts-sensitive E. coli. - Will discharge on 10 days of Cipro which has excellent kidney penetration. - Encourage to call PCP or return to ED if worsening symptoms. Resident Activity Tracking Resident Involvement: Resident Care Provided Care Provided: Adult Hospital Medicine
--- NOTE | 2020-08-29 12:19 | Billing Data ---
Date of Service August 29, 2020 Coding Level of Care Code D/C Day Management >30 mins
== END 2020-08-29 14:12 | disposition home or self-care (01) ==
LOC: ED 14:20 → INTOOBSV 18:24 → SUATTDRO 18:24 → 3N 18:24

== ENCOUNTER 2024-10-14 12:57 | Inpatient (IN) ==
--- NOTE | 2024-10-14 13:56 | XRay Report ---
XR chest 1V portable HISTORY: 63 years-old Female weakness COMPARISON: 12/08/2016 TECHNIQUE: AP view of the chest FINDINGS: Cardiomediastinal and hilar silhouettes are within normal limits. No pneumothorax, pleural effusion, airspace consolidation or pulmonary edema. Unchanged mild linear left basilar atelectasis versus scar ring. IMPRESSION: No acute process. ACT 112: Negative or not required by law. The above report was generated using voice recognition software. It may contain grammatical, syntax o r spelling errors. Electronically signed by: Thee Ro M.D. 10/14/2024 1:55 PM
[2024-10-14 14:06] LABS: Appearance Urine Clear (Clear); Bacteria Urine Automated None Seen (None Seen); Cast Urine Automated 0-2 /lpf (0-2); Glucose Urine UA Trace (Negative); RBC Urine Automated >20 /hpf (0-2); WBC Urine Automated >50 /hpf (0-5)
--- NOTE | 2024-10-14 14:07 | Emergency Department Note ---
Impression & Plan Acute hyponatremia, Urinary tract infection, Weakness, Anemia ED Provider Note NAME: ALEXIS COLLIER AGE: 63 SEX: F : 1960 ARRIVES VIA: Walk-In INFORMANT: Patient, ED PROVIDER(S): Jorge Hess DO CHIEF COMPLAINT: Weakness HPI: The patient is a 63-year-old female who presented to the emergency department for an evaluation of generalized weakness. The patient states that she has had problems over the last few days. She was seen for a procedure at [facility]. She has a stent placed in her left kidney. After the procedure she was found to be anemic as well as having low sodium. She was treated with blood transfusion and discharged home. She called her family doctor today to be seen because she has been feeling weak. She was told to come to the emergency department for further evaluation. The patient denies having any chest pain. She denies having any difficulty breathing at rest. She has noticed some shortness of breath with exertion. She denies having any leg swelling or leg pain. She has had no dysuria. ROS: See above HPI for pertinent positives & negatives. A total of 10 systems reviewed and were otherwise negative. PAST MEDICAL HISTORY: See Below PAST SURGICAL HISTORY: See Below FAMILY HISTORY: See Below SOCIAL HISTORY: See Below HOME MEDICATIONS: See Below ALLERGIES: See Below VITALS: See Below PHYSICAL EXAMINATION: GENERAL: Patient is awake alert in no acute distress patient is resting comfortably and showing no signs of anxiety EYES: The conjunctivae are clear. The pupils are round and reactive. EARS, NOSE, MOUTH AND THROAT: The nose is without any evidence of any deformity. NECK: The neck is nontender and supple. RESPIRATORY: Normal respiratory effort is noted there is no evidence of wheezing rhonchi or rales CARDIOVASCULAR: Regular rate and rhythm noted there no murmurs rubs or gallops normal S1 normal S2. GASTROINTESTINAL: The abdomen is soft. Abdomen is nontender. MUSCULOSKELETAL/EXTREMITIES: There is no evidence of gross deformity full range of motion is noted in the hips and shoulders. SKIN: There is no obvious evidence of any rash. There are no petechiae, pallor or cyanosis noted. NEUROLOGIC: Patient is awake alert and oriented x3 strength is symmetric patellar reflexes are 2+ bilaterally MEDICAL DECISION MAKING: The patient is a 63-year-old female who is status post direct ureteral calculi removal from [facility] who presented to the emergency department for an evaluation of generalized weakness. The patient was found to have anemia as well as hyponatremia while she was admitted at [facility]. She even required a transfusion. The patient was sent to the emergency department by her primary care physician for possible anemia. I discussed the patient's laboratory and radiographic studies with her. She was found to have signs of urinary tract infection on urinalysis. Given her recent instrumentation she was treated with antibiotics. The patient was also found of hyponatremia. She was well-appearing and was doing quite well with her vital signs. Given her findings as well as her symptoms I did discuss the case with the on-call [facility] hospitalist group. They have agreed to evaluate the patient in the emergency department for further management and disposition. Triage Nursing notes reviewed. Prior medical records reviewed Vital Signs: reviewed and remarkable for tachycardia. Differential diagnosis: Infection, dehydration, metabolic abnormality, hypo/hyperglycemia, electrolyte disturbance, anemia, hypoxia, cardiac sources, intracerebral event, toxicologic, neurologic, as well as other pathologies. ER treatment provided: See below Diagnostics interpreted by me: ECG: EKG was obtained in the emergency department. My interpretation is sinus tachycardia at 105 bpm. There is no ectopy. Nonspecific T wave abnormalities were noted. Inferior Q waves are noted. This was compared to a tracing from December 09, 2016. No changes were noted. Cardiac Monitoring: An order was placed for continuous cardiac monitoring. The monitor shows a rate of 109 bpm with sinus tachycardia. Laboratory studies: As stated above and show below. Imaging studies: See below. Radiographic imaging was reviewed by myself Consultation(s): I discussed this case with LAZARO who is on-call for the [facility] hospice group. Past Med/Surg History Problem List (Updated 10/14/24 @ 15:57 by Jorge Hess DO) Anemia (Acute) Weakness (Acute) Urinary tract infection (Acute) Left renal stone Urinary symptom or sign Diabetes (Chronic) HTN (hypertension) (Chronic) Sepsis (Acute) Leukocytosis (Acute) Pyelonephritis (Acute) Acute hyponatremia (Acute) Vomiting (Acute) Hyponatremia Hypothyroid Pyelonephritis Urinary tract infection (Acute) Flank pain (Acute) Social History Smoking Status: Never smoker Hx Alcohol Use: Yes Alcohol type: wine Hx Substance Use: No Preferred Language: Hungarian Communication Ability: Effective Beliefs That Will Affect Care: None Current Living Situation: Spouse Feels Safe at Home: Yes Assistive Devices: None Allergies Allergies Allergy/AdvReac Type Severity Reaction Status Date / Time morphine Allergy Intermediate RASH Verified 07/18/24 13:08 acesulfame Allergy Unknown Unknown Verified 07/18/24 13:08 aspartame Allergy Unknown Unknown Verified 07/18/24 13:08 saccharin Allergy Unknown Unknown Verified 07/18/24 13:08 sucralose Allergy Unknown Unknown Verified 07/18/24 13:08 Home Meds Home Medications Medication Instructions Recorded Confirmed levothyroxine 25 mcg tablet 25 mcg PO QAM 08/26/20 07/18/24 (Synthroid) lisinopril 20 1 tab PO BID 08/26/20 07/18/24 mg-hydrochlorothiazide 12.5 mg tablet Results & Data (ED) Vital Signs Vital Signs - 24 hr 10/14/24 13:12 10/14/24 13:25 10/14/24 13:25 Temperature 36.7 C Temperature Source Oral Pulse Rate 112 H Pulse Rate [Apical] 109 H Pulse Rate from SpO2 Sensor Respiratory Rate 19 19 Respiratory Effort / Characteristics Non-Labored Spontaneous Non-Labored Spontaneous Respiratory Depth Normal Normal Respiratory Pattern Regular Regular Blood Pressure 130/72 Blood Pressure [Left Arm] 144/87 H Blood Pressure Mean 91 Blood Pressure Mean [Left Arm] 106 Blood Pressure Position [Left Arm] Sitting Pulse Oximetry 97 97 97 Oxygen Delivery Method Room Air Room Air Room Air Sepsis Recent Fever Within 48 Hours No Sepsis New/Unexplained Change in Mental Status N/A Sepsis Action Taken by Nursing No Action Required 10/14/24 14:21 10/14/24 14:27 10/14/24 15:00 Temperature Temperature Source Pulse Rate 103 H 102 H Pulse Rate [Apical] 109 H Pulse Rate from SpO2 Sensor 104 H Respiratory Rate 17 20 Respiratory Effort / Characteristics Non-Labored Spontaneous Respiratory Depth Normal Respiratory Pattern Regular Blood Pressure Blood Pressure [Left Arm] 129/64 Blood Pressure Mean Blood Pressure Mean [Left Arm] 85 Blood Pressure Position [Left Arm] Semi-fowlers Pulse Oximetry 94 97 Oxygen Delivery Method Room Air Sepsis Recent Fever Within 48 Hours Sepsis New/Unexplained Change in Mental Status Sepsis Action Taken by Retirement Medications Current Medication List: was personally reviewed by me Laboratory Data Attestation: I reviewed the patient's lab results. 10/14/24 13:30 10/14/24 13:30 Lab Results 10/14/24 10/14/24 Range/Units 13:30 13:35 WBC 11.84 H (4.8-10.8) K/ul RBC 4.07 L (4.20-5.40) M/uL Hgb 9.5 L (12.0-16.0) g/dl Hct 29.5 L (37.0-47.0) % MCV 72.5 L (80.0-100.0) fL MCH 23.3 L (25.0-34.0) pg MCHC 32.2 (32.0-36.0) g/dL RDW Std Deviation 49.2 H (36.4-46.3) fL RDW Coeff of Deloris 19.1 H (11.5-14.5) % Plt Count 521 H (130-400) K/uL MPV 9.6 (9.4-12.4) fL Immature Gran % (Auto) 0.4 % Neut % (Auto) 66.2 % Lymph % (Auto) 26.4 % [place] % (Auto) 5.7 % Eos % (Auto) 0.6 % Baso % (Auto) 0.7 % Neut # (Auto) 7.84 H (1.40-6.50) K/uL Lymph # (Auto) 3.13 (1.20-3.40) K/uL [place] # (Auto) 0.67 H (0.11-0.59) K/uL Eos # (Auto) 0.07 (0.00-0.50) K/uL Baso # (Auto) 0.08 (0.00-0.20) K/uL Immature Gran # (Auto) 0.05 (0.01-0.20) K/uL Sodium 124 L (136-145) mmol/L Potassium 4.6 (3.5-5.1) mmol/L Chloride 91 L (98-107) mmol/L Carbon Dioxide 21 (21-32) mmol/L Anion Gap 12 H (3-11) BUN 17 (6-23) mg/dl Creatinine 0.63 (0.6-1.2) mg/dl Est Cr Clr Drug Dosing 96.7 ml/min eGFR 99.62 BUN/Creatinine Ratio 27.0 H (10-20) Glucose 249 H (70-99(Fasting)) mg/dl Calcium 9.9 (8.6-10.3) mg/dl Magnesium 1.7 (1.7-2.4) mg/dl Total Bilirubin 0.3 (0.2-1.0) mg/dl AST 18 (13-39) U/L ALT 14 (7-52) U/L Alkaline Phosphatase 83 (34-104) U/L Troponin I High Sens 2.6 (0-14) pg/ml Total Protein 7.7 (6.0-8.3) gm/dl Albumin 4.0 (3.4-5.0) gm/dl Globulin 3.7 (2.5-4.0) gm/dl Albumin/Globulin Ratio 1.1 (0.9-2) Lipase 101 H (11-82) U/L Urine Color Yellow Urine Appearance Clear (Clear) Urine pH 6.5 (4.5-7.5) Ur Specific [place] 1.012 (1.000-1.030) Urine Protein 1+ H (Negative) Urine Glucose (UA) Trace H (Negative) Urine Ketones Negative (Negative) Urine Blood 3+ H (Negative) Urine Nitrite Negative (Negative) Urine Bilirubin Negative (Negative) Urine Urobilinogen Negative (Negative) Ur Leukocyte Esterase 2+ H (Negative) Urine WBC (Auto) >50 H (0-5) /hpf Urine RBC (Auto) >20 H (0-2) /hpf U Hyaline Cast (Auto) 0-2 (0-2) /lpf U Epithel Cells (Auto) 3-5 H (0-2) /hpf Urine Bacteria (Auto) None Seen (None Seen) Urine Comment Administered Medications Discontinued Medications Sodium Chloride (Nss) 1,000 mls @ 999 mls/hr IV .Q1H1M ONE Stop: 10/14/24 15:40 Last Admin: 10/14/24 15:00 Dose: 999 mls/hr Documented By: DEVONTE Levofloxacin (Levofloxacin 750 Mg Tab) 750 mg PO ONE ONE; Protocol Stop: 10/14/24 14:41 Last Admin: 10/14/24 14:58 Dose: 750 mg Documented By: DEVONTE Imaging Data Attestation: I personally reviewed and interpreted this imaging study as follows: My Impression: 1 view chest x-ray was obtained in the emergency department. My interpretation is no free air or definite filtrate, final report below. Radiologist's Impression: Chest X-Ray 10/14/24 13:18 XR chest 1V portable HISTORY: 63 years-old Female weakness COMPARISON: 12/08/2016 TECHNIQUE: AP view of the chest FINDINGS: Cardiomediastinal and hilar silhouettes are within normal limits. No pneumothorax, pleural effusion, airspace consolidation or pulmonary edema. Unchanged mild linear left basilar atelectasis versus scarring. IMPRESSION: No acute process. ACT 112: Negative or not required by law. The above report was generated using voice recognition software. It may contain grammatical, syntax or spelling errors. Electronically signed by: Thee Ro M.D. 10/14/2024 1:55 PM Discharge Plan Visit Data Chief Complaint: Referred by Doctor Stated Complaint: DOC REFERRAL HEMOGLOBIN CHECKED ED Provider: Jorge Hess Discharge Problem: Acute hyponatremia, Urinary tract infection, Weakness, Anemia Patient Disposition: Being Evaluated by Hospitalist Condition: Good Forms Stand Alone Forms: My [facility] [employer] Prescriptions Prescriptions: No Action lisinopril-hydrochlorothiazide 20-12.5 mg tablet 1 tab PO BID levothyroxine [Synthroid] 25 mcg tablet 25 mcg PO QAM Referrals Referrals: Itzel Angela [Primary Care Provider] -
[2024-10-14 14:09] LABS: Hematocrit (blood only) 29.5 % (37.0-47.0); Hemoglobin 9.5 g/dl (12.0-16.0); Immature Granulocytes # (auto) 0.05 K/uL (0.01-0.20); Immature Granulocytes % (auto) 0.4 %; Mean Corpuscular Hemoglobin 23.3 pg (25.0-34.0); Mean Corpuscular Volume 72.5 fL (80.0-100.0); Platelet Count 521 K/uL (130-400); RDW Standard Deviation 49.2 fL (36.4-46.3); Red Blood Count 4.07 M/uL (4.20-5.40); White Blood Count 11.84 K/ul (4.8-10.8)
[2024-10-14 14:28] LABS: Alanine Aminotransferase 14.0 U/L (7-52); Albumin Globulin Ratio 1.1 (0.9-2); Alkaline Phosphatase 83.0 U/L (34-104); Anion Gap 12.0 (3-11); Bilirubin,Total 0.3 mg/dl (0.2-1.0); Blood Urea Nitrogen 17.0 mg/dl (6-23); Calcium 9.9 mg/dl (8.6-10.3); Carbon Dioxide 21.0 mmol/L (21-32); Chloride 91.0 mmol/L (98-107); Creatinine Clr Calc Pharmacy 96.7 ml/min; Globulin 3.7 gm/dl (2.5-4.0); Glucose 249.0 mg/dl (70-99(Fasting)); Lipase 101.0 U/L (11-82); Magnesium 1.7 mg/dl (1.7-2.4); Potassium 4.6 mmol/L (3.5-5.1); Sodium 124.0 mmol/L (136-145); Total Protein 7.7 gm/dl (6.0-8.3)
[2024-10-14] MEDS: SODIUM CHLORIDE 0.9% 1,000 ML IV ONE (15:00)
--- NOTE | 2024-10-14 15:41 | History & Physical Report ---
Date of Service October 14, 2024 Assessment & Plan (1) Hyponatremia: (2) Urinary tract infection: (3) Anemia: Plan This patient is a 63-year-old female who presented on 10/14 for increased fatigue x 2 days CRATE TIER. Recent hospitalization at [facility] for kidney stone removal. At that time she had a low hemoglobin of 6.9, and a low sodium of 122. #Hyponatremia Patient appears euvolemic on exam; Na 124 on arrival H/o chronic hyponatremia; most recently the patient was low at 122 at [facility], but tian to 128 prior to discharge (per patient; no records readily available) Suspect that patient's hyponatremia is due to HCTZ usage (which was discontinued at time of discharge; however, patient went back on it due to lower extremity edema) Discontinue further HCTZ use Given leukocytosis + recent hospitalization + congestion/cough, COVID/flu/RSV ordered to rule out infectious etiology S/p NSS 1000 mL IV x 1 in the ED Urine osm and serum osm ordered, pending Note: urine sodium unlikely to be accurate in the setting of HCTZ use Fluid restriction at 1200mL Trend BMP #UTI Mild leukocytosis at 11.84 on arrival UA positive on arrival Most recent urine culture 07/2021 grew Proteus vulgaris with resistance to ceftriaxone Levofloxacin 750mg p.o. q24h; QTc 438 Follow current UCx Continue oxybutynin, tamsulosin in the setting of recent urologic procedure #LE edema No LE edema at present Reports that whenever she stops taking her HCTZ, her legs "balloon" up Will defer sodium tablets at this time Fluid restriction (as above) #Anemia Hgb 9.5 on arrival; MCV low at 72.5 Patient reports her hemoglobin was 8.4 at time of discharge from [facility] ? Acute blood loss anemia in the setting of recent procedure v. SHANNON AM iron panel ordered, pending #Hypothyroidism Continue levothyroxine TSH ordered, pending #HTN Continue lisinopril [facility]: low risk, encourage ambulation; SCDs History of Present Illness Chief Complaint: Referred by Doctor; generalized fatigue Primary Care Provider: Itzel Angela Mrs. Hill is a 63-year-old female with PMH of diabetes, HTN, pyelonephritis, urinary tract infections, and kidney stone stent/removal. She presented on 10/14 at the behest of her PCP due to increased fatigue x 2 days CRATE TIER. Patient reports that she felt more tired and drained over the past 2 days, and this has been gradually worsening. Recent history of hospitalization at [facility] where she had a kidney stone removal and percutaneous nephrolithotomy on her left kidney (10/02). While in the hospital, patient reports that her hemoglobin was that at 6.9, and she required a blood transfusion. Her Hgb was 8.7 on discharge. She is unsure what her sodium level was upon discharge, but believes it dropped down to a low of 122, and tian to around 128 at time of discharge. She does have a history of low sodium in the past, and her lisinoprilHCTZ was held prior to her procedure. Upon discharge, she was told to be on lisinopril 40 mg p.o. daily, however her leg started to "balloon up" and she went back on lisinopril-HCTZ. Patient denies prior history of CHF. She takes lisinopril HCTZ for her high blood pressure, and more recently for her lower extremity edema. Patient took her regular morning medicine today. Only recent change in medications, is that she was started on tamsulosin and oxybut ynin upon discharge from [facility]. She denies any sick contacts. She does have a dry cough and congestion at baseline, but attributes this to her allergies. Additionally, patient reports that her sugar levels were elevated above 200 this morning; normally she controls her diabetes with diet alone. Patient denies smoking, tobacco use, recent alcohol use. Patient is tachycardic at 109 bpm at time of admission; vitals otherwise stable. ED course: Levofloxacin 750 mg p.o. 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 Patient denies fever, chills, night-sweats, chest pain, chest palpitations, SOB, abdominal pain, vomiting, BRB in the urine/stool, or saddle anesthesia. Allergies Allergy/AdvReac Type Severity Reaction Status Date / Time morphine Allergy Intermediate RASH Verified 10/14/24 17:12 acesulfame Allergy Unknown Unknown Verified 10/14/24 17:12 aspartame Allergy Unknown Unknown Verified 10/14/24 17:12 saccharin Allergy Unknown Unknown Verified 10/14/24 17:12 sucralose Allergy Unknown Unknown Verified 10/14/24 17:12 Home Medications Medication Instructions Recorded Confirmed Type Cbd Gummy 1 gummy PO HS Sleep 10/14/24 10/14/24 History Deep Blue Capsule 1 cap PO BID 10/14/24 10/14/24 History Doterra Vitamins 2 tab PO BID 10/14/24 10/14/24 History Tri-Ease 1 tab PO QAM 10/14/24 10/14/24 History berberine chloride 1 cap PO AC 10/14/24 10/14/24 History blood sugar diagnostic (Accu-Chek 10/14/24 10/14/24 History Guide test strips) cranberry 500 mg capsule 1,000 mg PO QAM 10/14/24 10/14/24 History iodine 150 mcg tablet (Kelp 150 mcg PO QAM 10/14/24 10/14/24 History (iodine)) levothyroxine 25 mcg tablet 25 mcg PO DAILYBB 10/14/24 10/14/24 History lisinopril 20 1 tab PO QAM 10/14/24 10/14/24 History mg-hydrochlorothiazide 12.5 mg tablet omeprazole 20 mg capsule,delayed 40 mg PO QAM 10/14/24 10/14/24 History release oxybutynin chloride 10 mg 10 mg PO QAM Urinary discomfort 10/14/24 10/14/24 History tablet,extended release 24 hr tamsulosin 0.4 mg capsule 0.4 mg PO QAM 10/14/24 10/14/24 History Past Med/Surg History Problem List (Updated 10/14/24 @ 19:48 by Jackson Hanson) Anemia (Acute) Weakness (Acute) Urinary tract infection (Acute) Left renal stone Urinary symptom or sign Diabetes (Chronic) HTN (hypertension) (Chronic) Sepsis (Acute) Leukocytosis (Acute) Pyelonephritis (Acute) Acute hyponatremia (Acute) Vomiting (Acute) Hyponatremia Hypothyroid Pyelonephritis Urinary tract infection (Acute) Flank pain (Acute) Social History (Reviewed 10/14/24 @ 14:05 by NIC Kwan Smoking Status: Never smoker Hx Alcohol Use: Yes Alcohol type: wine Hx Substance Use: No Preferred Language: Spanish Communication Ability: Effective Beliefs That Will Affect Care: None Current Living Situation: Spouse Feels Safe at Home: Yes Assistive Devices: None Review of Systems Review of Systems: See HPI above Physical Exam Physical Exam: General: no acute distress; pleasant affect; non-toxic appearing; well- nourished; cooperative; SpO2 97% on RA HEENT: normocephalic, atraumatic; PERRLA; vision and hearing grossly intact Neck: supple; no lymphadenopathy; trachea midline Skin: warm, dry without signs of tenting; no cyanosis; no rashes, bruising, lesions, or erythema noted CV: chest wall NTP; RR, mildly tachycardic around 100 to 110 bpm; S1/S2 normal; no murmurs/rubs/gallops; pulses intact and symmetric at radial, DP, and PT Lungs: no acute respiratory distress; symmetrical chest wall expansion; clear breath sounds across all lung anand w/o adventitious sounds; no wheezing ABD: Soft, TTP in the left lower quadrant with some surrounding edema; no rashes or bruising appreciated in the abdomen or flanks bilaterally; BS present; no rebound/guarding; mild distention secondary to body habitus Back: Left-sided CVA tenderness to palpation; upper spine NTP; negative right sided CVA tenderness MSK: no tics or fasciculations; no edema noted in the LEs b/l, nonerythematous Neuro: A&Ox3; normal mood and affect; regular gait; fluent speech; no focal deficits; sensation intact and symmetric in all extremities bilaterally assessed via light touch Results & Data Results & Data Vital Signs (Past 12 Hours) Vital Signs Temp Pulse Pulse Resp BP BP Pulse Ox 10/14/24 15:00 109 H 20 129/64 97 10/14/24 14:27 102 H 10/14/24 14:21 103 H 17 94 10/14/24 13:25 97 10/14/24 13:25 109 H 19 144/87 H 97 10/14/24 13:12 36.7 C 112 H 19 130/72 97 O2 Del Method 10/14/24 15:00 Room Air 10/14/24 14:27 10/14/24 14:21 10/14/24 13:25 Room Air 10/14/24 13:25 Room Air 10/14/24 13:12 Room Air Laboratory Results Abnormal lab results 10/14/24 10/14/24 Range/Units 13:30 13:35 WBC 11.84 H (4.8-10.8) K/ul RBC 4.07 L (4.20-5.40) M/uL Hgb 9.5 L (12.0-16.0) g/dl Hct 29.5 L (37.0-47.0) % MCV 72.5 L (80.0-100.0) fL MCH 23.3 L (25.0-34.0) pg RDW Std Deviation 49.2 H (36.4-46.3) fL RDW Coeff of Deloris 19.1 H (11.5-14.5) % Plt Count 521 H (130-400) K/uL Neut # (Auto) 7.84 H (1.40-6.50) K/uL [place] # (Auto) 0.67 H (0.11-0.59) K/uL Sodium 124 L (136-145) mmol/L Chloride 91 L (98-107) mmol/L Anion Gap 12 H (3-11) BUN/Creatinine Ratio 27.0 H (10-20) Glucose 249 H (70-99(Fasting)) mg/dl Lipase 101 H (11-82) U/L Urine Protein 1+ H (Negative) Urine Glucose (UA) Trace H (Negative) Urine Blood 3+ H (Negative) Ur Leukocyte Esterase 2+ H (Negative) Urine WBC (Auto) >50 H (0-5) /hpf Urine RBC (Auto) >20 H (0-2) /hpf U Epithel Cells (Auto) 3-5 H (0-2) /hpf Diagnostic Findings Chest X-Ray 10/14/24 13:18 XR chest 1V portable HISTORY: 63 years-old Female weakness COMPARISON: 12/08/2016 TECHNIQUE: AP view of the chest FINDINGS: Cardiomediastinal and hilar silhouettes are within normal limits. No pneumothorax, pleural effusion, airspace consolidation or pulmonary edema. Unchanged mild linear left basilar atelectasis versus scarring. IMPRESSION: No acute process. ACT 112: Negative or not required by law. The above report was generated using voice recognition software. It may contain grammatical, syntax or spelling errors. Electronically signed by: Thee Ro M.D. 10/14/2024 1:55 PM ECG Additional Comments: ECG revealed sinus tachycardia at 105 bpm; QTc 438 Code Status & VTE Plan Code Status Full code VTE Prophylaxis Plan VTE Prophylaxis will be ordered: Yes Supervising Physician Co-Signing Physician Notes Patient was seen and examined independently I discussed the case with Anatoliy Suarez PA-C I reviewed pertinent past medical social family history and also the plan of care and agree with the plan of care. Patient recently had percutaneous destruction of large renal stones at [facility] with a renal stent placed. She was discharged home and told to hold her hydrochlorothiazide due to hyponatremia developed during her hospital stay. Patient began her hydrochlorothiazide due to lower extremity swelling she now presents with a sodium of 124 and symptoms of fatigue additionally she has had worsening pain mostly in the left flank she has an abnormal urinalysis with concern for urinary tract infection present on admission. This could be associate with a stent and if so the stent may need to be changed out Physically she is tenderness to her abdomen on the left side when examining she has normal active bowel sounds card exam is regular lungs are clear. Continue broad-spectrum antibiotics with coverage for gram-negative bacteria on Levaquin therapy will perhaps need a urology evaluation Any exceptions will be noted below PG Care Time/CCT Total # of Minutes Spent Total Time Spent with Patient: Total time spent is greater than 50% in coordination of care (as documented) at patient's floor/unit and/or counseling patient: C[place] [address] INT INP/OBS CARE 3/75MIN Patient Type Established Medical Decision Making High Complexity Diagnoses Hyponatremia E87.1 Urinary tract infection N39.0 Anemia D64.9
[2024-10-14 17:06] LABS: Thyroid Stimulating Hormone 4.255 uIu/ml (0.300-4.500)
[2024-10-14 17:44] LABS: Influenza A virus by PCR Negative (Neg); Influenza B virus by PCR Negative (Neg); SARS CoV2 RNA(COVID-19) Ceph NEGATIVE (Negative)
[2024-10-14] MEDS ORDERED: GLUCOSE 40% GEL 15 GM TUBE PO PRN ×2 (19:54→22:13)
[2024-10-14] MEDS ORDERED: CARBOHYDRATES FOR HYPOGLYCEMIA PO PRN ×2 (19:54→22:13)
[2024-10-14] MEDS ORDERED: GLUCOSE 10 TAB/TUBE PO PRN (19:54)
[2024-10-14] MEDS ORDERED: GLUCAGON FOR INJ 1 MG VIAL SQ PRN ×2 (19:54→22:13)
[2024-10-14] MEDS ORDERED: DEXTROSE 50% 50 ML SYRINGE IV PRN ×2 (19:54→22:13)
[2024-10-14] MEDS: ACETAMINOPHEN 325 MG TAB PO PRN (21:02)
[2024-10-14] MEDS: INSULIN ASPART PER UNIT CHARGE SC SCH (23:22)
[2024-10-14] MEDS: LANTUS PER UNIT CHARGE SQ SCH (23:22)
--- NOTE | 2024-10-15 06:01 | Electrocardiogram Report ---
Test Reason : Blood Pressure : */* mmHG Vent. Rate : 105 BPM Atrial Rate : 105 BPM P-R Int : 174 ms QRS Dur : 82 ms QT Int : 332 ms P-R-T Axes : 41 -4 73 degrees QTcB Int : 438 ms Sinus tachycardia Inferior infarct , age undetermined Anteroseptal infarct Nonspecific T wave abnormality Abnormal ECG When compared with ECG of 09-Dec-2016 06:30, Vent. rate has increased by 35 bpm Minimal criteria for Anteroseptal infarct are now Present Inferior infarct is now Present Confirmed by Nicanor Vanessa ([id number]) on 10/15/2024 6:01:01 AM Referred By: REFERRED SELF Confirmed By: Nicanor Vanessa
[2024-10-15] MEDS: LEVOTHYROXINE SODIUM 25 MCG TABLET PO SCH (06:27)
[2024-10-15 06:50] LABS: Hematocrit (blood only) 29.2 % (37.0-47.0); Hemoglobin 9.3 g/dl (12.0-16.0); Immature Granulocytes # (auto) 0.04 K/uL (0.01-0.20); Immature Granulocytes % (auto) 0.4 %; Mean Corpuscular Hemoglobin 23.6 pg (25.0-34.0); Mean Corpuscular Volume 74.1 fL (80.0-100.0); Platelet Count 504 K/uL (130-400); RDW Standard Deviation 50.4 fL (36.4-46.3); Red Blood Count 3.94 M/uL (4.20-5.40); White Blood Count 9.46 K/ul (4.8-10.8)
[2024-10-15 07:14] LABS: Anion Gap 9.0 (3-11); Blood Urea Nitrogen 12.0 mg/dl (6-23); Calcium 9.4 mg/dl (8.6-10.3); Carbon Dioxide 25.0 mmol/L (21-32); Chloride 96.0 mmol/L (98-107); Creatinine Clr Calc Pharmacy 96.9 ml/min; Glucose 187.0 mg/dl (70-99(Fasting)); Iron 21.0 mcg/dl (35-150); Potassium 4.3 mmol/L (3.5-5.1); Sodium 130.0 mmol/L (136-145); Transferrin 382.0 mg/dl (200-360)
[2024-10-15 07:25] LABS: Total Iron Binding Cap Calc 535.0 mcg/dl (250-450); Transferrin (FE) Percent Satur 4.0 % (15-50)
[2024-10-15] MEDS ORDERED: INSULIN ASPART PER UNIT CHARGE SC SCH (07:30)
[2024-10-15 07:34] LABS: Ferritin 36.5 ng/ml (8-388)
[2024-10-15 07:47] LABS: Hemoglobin A1C 7.9 % (4.5-5.6)
[2024-10-15] MEDS: TAMSULOSIN HCL 0.4 MG CAP PO SCH (08:26)
[2024-10-15] MEDS: OXYBUTYNIN CHLORIDE XL 5 MG TABCR PO PRN (08:26)
[2024-10-15] MEDS ORDERED: LANTUS PER UNIT CHARGE SQ SCH (09:00)
--- NOTE | 2024-10-15 11:41 | Hospitalist Progress Note ---
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 At that time she had a low hemoglobin of 6.9, and a low sodium of 122. #Hyponatremia (improving) Patient remains euvolemic on examNa trend 124 -> 130 H/o chronic hyponatremia; most recently the patient was low at 122 [place] [facility] tian to 128 prior to discharge (per patient; no records readily available) Suspect that patient's hyponatremia is due to HCTZ usage (which was discontinued at time of discharge; however, patient went back on it due to lower extremity edema) Discontinue further HCTZ use COVID/flu/RSV negative S/p NSS 1000 mL IV x 1 in the ED Urine osm and serum osm ordered, pending Note: urine sodium unlikely to be accurate in the setting of HCTZ use Fluid restriction at 1200mL Trend BMP #UTI Clinically, patient endorses burning with urination UA positive on arrival UCx with pinpoint growth on 10/15 (re-incubating) Most recent urine culture 07/2021 grew Proteus vulgaris with resistance to ceftriaxone Levofloxacin 750mg p.o. q24h; QTc 438 Continue oxybutynin PRN, tamsulosin in the setting of recent urologic procedure Follow current UCx #Iron deficiency anemia Hgb 9.5 on arrival; MCV low at 72.5 Patient reports her hemoglobin was 8.4 at time of discharge from [facility] ? Acute blood loss anemia in the setting of recent procedure v. SHANNON Iron low at 21 on 10/15 Patient does report history of SHANNON back when she was H/o colonic resection ~10y ago [place] [facility] She reports she is never been on iron supplements in the past Last colonoscopy >10 y ago; patient denies family history of colon cancer Recommend GI follow-up for colonoscopy on discharge Initiate ferrous sulfate 325 mg p.o. QAM #LE edema No LE edema at present Reports that whenever she stops taking her HCTZ, her legs "balloon" up Will defer sodium tablets at this time Fluid restriction (as above) #Hypothyroidism TSH WNL Continue levothyroxine #HTN Continue lisinopril Disposition: Admit to [facility] VTE PPx: low risk, encourage ambulation; SCDs Admission and Anticipated Discharge Date Admission Date: October 14, 2024 Subjective Mrs. Hill reports she is marginally better today when compared to yesterday. She is still feeling significantly fatigued, and she had difficulty sleeping last night. However she has been eating and drinking well this morning. Patient reports she does have a history of iron deficiency anemia in the past when she was , but does not currently take iron supplements. She cannot recall if anybody told her why her hemoglobin was low while she was at [facility]. Patient normally takes multi-vitamins, but did not take them in the week leading up to her urologic procedure. 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 Patient reports that her last colonoscopy was >10y ago. She denies prior history of colon cancer or family history of colon cancer. She reports no side effects from taking levofloxacin. No melena or blood in her stool. ROS: Patient endorses generalized fatigue, tenderness to palpation in her left lower back around the incision site, burning with urination, and nasal dryness. Patient denies fever, chest pain, SOB, cough, abdominal pain, N/V/D, melena, or bright red blood in her urine or stool. Review of Systems Review of Systems: See HPI above Physical Exam Physical Exam: General: no acute distress; pleasant affect; sitting upright in bed; son at bedside; non-toxic appearing; well-nourished; cooperative; SpO2 96% on RA HEENT: normocephalic, atraumatic; PERRLA; vision and hearing grossly intact Neck: supple; no lymphadenopathy; trachea midline Skin: warm, dry without signs of tenting; no cyanosis; no rashes, bruising, lesions, or erythema noted CV: chest wall NTP; RRR; S1/S2 normal; no murmurs/rubs/gallops; pulses intact and symmetric at radial, DP, and PT Lungs: no acute respiratory distress; symmetrical chest wall expansion; clear breath sounds across all lung anand w/o adventitious sounds; no wheezing ABD: Soft, TTP in the left lower quadrant with some surrounding edema; no rashes or bruising appreciated in the abdomen or flanks bilaterally; BS present; no rebound/guarding; mild distention secondary to body habitus Back: Left-sided CVA tenderness to palpation; upper spine NTP; negative right sided CVA tenderness MSK: no tics or fasciculations; no edema noted in the LEs b/l, nonerythematous Neuro: A&Ox3; normal mood and affect; regular gait; fluent speech; no focal deficits; sensation intact and symmetric in all extremities bilaterally assessed via light touch Results & Data Results & Data Vital Signs (Past 12 Hours) Vital Signs Temp Pulse Resp BP BP Pulse Ox O2 Del Method 10/15/24 09:45 Room Air 10/15/24 07:45 36.4 C L 88 18 132/78 96 Room Air 10/15/24 04:00 36.7 C 91 H 18 129/79 97 Room Air PG Care Time/CCT Total # of Minutes Spent Total Time Spent with Patient: Total time spent is greater than 50% in coordination of care (as documented) at patient's floor/unit and/or counseling patient: Coding [place] [address] SUB INP/OBS CARE 2/35MIN Patient Type Established History Comprehensive Exam Comprehensive Medical Decision Making Moderate Complexity Diagnoses Hyponatremia E87.1 Urinary tract infection N39.0 Iron deficiency anemia D50.9
[2024-10-15] MEDS: FERROUS SULFATE 325 MG TAB PO STA (12:52)
[2024-10-16] MEDS ORDERED: CETIRIZINE HCL 10 MG TABLET PO PRN (03:13)
[2024-10-16] MEDS: KETOROLAC TROMETHAMINE 15 MG/ML VIAL IV ONE ×2 (03:42→09:20)
[2024-10-16 06:52] LABS: Hematocrit (blood only) 28.5 % (37.0-47.0); Hemoglobin 9.3 g/dl (12.0-16.0); Mean Corpuscular Hemoglobin 24.0 pg (25.0-34.0); Mean Corpuscular Volume 73.6 fL (80.0-100.0); Platelet Count 548 K/uL (130-400); RDW Standard Deviation 50.2 fL (36.4-46.3); Red Blood Count 3.87 M/uL (4.20-5.40); White Blood Count 10.07 K/ul (4.8-10.8)
[2024-10-16 07:21] LABS: Anion Gap 9.0 (3-11); Blood Urea Nitrogen 19.0 mg/dl (6-23); Calcium 9.7 mg/dl (8.6-10.3); Carbon Dioxide 24.0 mmol/L (21-32); Chloride 98.0 mmol/L (98-107); Creatinine Clr Calc Pharmacy 68.3 ml/min; Glucose 154.0 mg/dl (70-99(Fasting)); Potassium 4.2 mmol/L (3.5-5.1); Sodium 131.0 mmol/L (136-145)
[2024-10-16] MEDS: FLUTICASONE PROPIONATE NA SPR 16 GM BTL SCH (08:25)
[2024-10-16] MEDS: PHENAZOPYRIDINE HCL 200 MG TAB PO PRN (08:25)
[2024-10-16] MEDS: FERROUS SULFATE 325 MG TAB PO SCH (08:33)
[2024-10-16] MEDS: DOCUSATE SODIUM 100 MG CAP PO ONE (12:03)
--- NOTE | 2024-10-16 13:53 | Hospitalist Progress Note ---
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 [place] for kidney stone removal. At that time she had a low hemoglobin of 6.9, and a low sodium of 122. #Hyponatremia (improving) Patient remains euvolemic on exam Na trend 124 -> 130 -> 131 H/o chronic hyponatremia; most recently the patient was low at [address] [facility] [place], but tian to 128 prior to discharge (per patient; no records readily available) Suspect that patient's hyponatremia is due to HCTZ usage (which was discontinued at time of discharge; however, patient went back on it due to lower extremity edema) Discontinue further HCTZ use COVID/flu/RSV negative Fluid restriction at 1200mL Trend BMP #Otitis media, left New left ear pain developed while in the hospital Initiate Rocephin 2000 g IV q24h to cover for both otitis media + worsening UTI symptoms #UTI Clinically, patient endorses burning with urination / groin pain UA positive on arrival Most recent urine culture 07/2021 grew Proteus vulgaris with resistance to c eftriaxone UCx on 10/16 without growth Discontinue levofloxacin However, patient reports worsening of left sided flank/groin pain on 10/16 that woke her from sleep A/P CT without contrast ordered to assess ureteral stent Rocephin (as above) Continue oxybutynin PRN Continue tamsulosin Renal function okay Acetaminophen/Toradol as needed for pain #Iron deficiency anemia Hgb 9.5 on arrival; MCV low at 72.5 Patient reports her hemoglobin was 8.4 at time of discharge from [facility] ? Acute blood loss anemia in the setting of recent procedure v. SHANNON Iron low at 21 on 10/15 Patient does report history of SHANNON back when she was H/o colonic resection ~10y [address] [facility] [place] She reports she is never been on iron supplements in the past Last colonoscopy >10 y ago; patient denies family history of colon cancer Recommend GI follow-up for colonoscopy on discharge Initiate ferrous sulfate 325 mg p.o. QAM #LE edema No LE edema at present Reports that whenever she stops taking her HCTZ, her legs "balloon" up Will defer sodium tablets at this time Fluid restriction (as above) #Hypothyroidism TSH WNL Continue levothyroxine #HTN Continue lisinopril Disposition: Continued stay on [facility] VTE PPx: low risk, encourage ambulation; SCDs Admission and Anticipated Discharge Date Admission Date: October 14, 2024 Subjective Mrs. Hill reports that she woke up in the middle the night with 8/10 pain wrapping around her left flank. Patient reports that yesterday she had pain mainly confined to her left lower back around the incision site, she is now having pain in the left inguinal crease rating towards her groin. She received Toradol last night which did help, but then she woke up with additional pain this morning. She also reports that her left ear feels "clogged" and she is having difficulty hearing in that ear. She also is having aching pain radiating across her cheek into the left ear. ROS: Patient endorses left ear pain, generalized fatigue, nasal congestion, and left flank pain extending down towards the groin region. Patient denies tinnitus, fever, chest pain, SOB, pleuritic CP, cough, nausea, or vomiting. Review of Systems Review of Systems: See HPI above Physical Exam Physical Exam: General: no acute distress; pleasant affect; sitting upright in bed; non-toxic appearing; well-nourished; cooperative; SpO2 96% on RA HEENT: normocephalic, atraumatic; PERRLA; vision intact; right ear with TM pearly reed/no erythema appreciated; left ear exhibits cerumen versus dried blood, canal is erythematous, mild bulging of the tympanic membrane Neck: supple; no lymphadenopathy; trachea midline Skin: warm, dry without signs of tenting; no cyanosis; no rashes, bruising, lesions, or erythema noted CV: chest wall NTP; RRR; S1/S2 normal; no murmurs/rubs/gallops; pulses intact and symmetric at radial, DP, and PT Lungs: no acute respiratory distress; symmetrical chest wall expansion; clear breath sounds across all lung anand w/o adventitious sounds; no wheezing ABD: Soft, TTP in the left lower quadrant with some surrounding edema; no rashes or bruising appreciated in the abdomen or flanks bilaterally; BS present; no rebound/guarding; mild distention secondary to body habitus Back: Left-sided CVA tenderness to palpation; upper spine NTP; negative right sided CVA tenderness MSK: no tics or fasciculations; no edema noted in the LEs b/l, nonerythematous Neuro: A&Ox3; normal mood and affect; regular gait; fluent speech; no focal deficits; sensation intact and symmetric in all extremities bilaterally assessed via light touch Results & Data Results & Data Vital Signs (Past 12 Hours) Vital Signs Temp Pulse Resp BP Pulse Ox O2 Del Method 10/16/24 10:19 Room Air 10/16/24 07:55 36.4 C L 80 18 107/64 96 Room Air PG Care Time/CCT Total # of Minutes Spent Total Time Spent with Patient: Total time spent is greater than 50% in coordination of care (as documented) at patient's floor/unit and/or counseling patient: Coding [place] [address] SUB INP/OBS CARE 3/50MIN Patient Type Established History Comprehensive Exam Comprehensive Medical Decision Making High Complexity Diagnoses Hyponatremia E87.1 Urinary tract infection N39.0 Iron deficiency anemia D50.9
[2024-10-16] MEDS: cefTRIAXone SODIUM 2,000 MG/50 ML BAG IV SCH (15:03)
--- NOTE | 2024-10-16 15:32 | CT Scan Report ---
ABDOMEN AND PELVIS CT WITHOUT CONTRAST CT DOSE: 1240.55 mGy.cm HISTORY: Acute left sided flank pain Left flank pain TECHNIQUE: Multiaxial CT images of the abdomen and pelvis were performed without contrast. A dose lo wering technique was utilized adhering to the principles of ALARA. COMPARISON STUDY: 07/11/2024 FINDINGS: Clear lung bases. No pneumatosis or pneumoperitoneum. The unenhanced spleen, pancreas and a drenal glands are unremarkable. Cholecystectomy. Unremarkable liver. 9 mm exophytic lesion of the interpolar right kidney on image 169 demonstrates Hounsfield unit of 52, previously 19. This is suggestive of a complex cyst. Moderate left-sided perinephric stranding. A li near tract from the posterior left perinephric space suggests prior percutaneous nephrostomy catheter placement and subsequent removal. 1.4 cm nodular focus within the perinephric space image 144, likel y benign however new from prior. There is urothelial thickening of the left renal collecting system a nd ureter. There is mild left-sided hydronephrosis with several irregular calcifications/stone fragme nts noted within the left renal pelvis and calyces measuring up to approximately 9 mm. Left renal bartolo nt is in place. The left ureter is normal in caliber without ureteral calculi. No right-sided nephrol ithiasis. Decompressed urinary bladder. Unremarkable uterus. Atherosclerosis of the aorta. No lymphadenopathy. Tiny hiatal hernia. No bowel obstruction or bowel w all thickening. Suture material within the sigmoid colon. Postoperative changes of prior ventral abdo fara wall hernia repair. Appendix. Multilevel degenerative changes of the lumbar spine. IMPRESSION: 1. Mild left-sided hydronephrosis with numerous stone fragments present within the calyces and renal pelvis of the left kidney measuring up to 9 mm. 2. Left ureteral stent in place. No ureteral calculi. 3. No bowel obstruction or bowel wall thickening. 4. Chronic findings as above. ACT 112: Negative or not required by law. The above report was generated using voice recognition software. It may contain grammatical, syntax o r spelling errors. Electronically signed by: Thee Ro M.D. 10/16/2024 3:30 PM
[2024-10-16] MEDS: MELATONIN 3 MG TAB PO PRN (21:48)
[2024-10-17 07:27] VITALS: BP 124/75; PULSE 91; RESP 18; TEMP 97.5; O2SAT 96
[2024-10-17 10:02] LABS: Hematocrit (blood only) 30.0 % (37.0-47.0); Hemoglobin 9.5 g/dl (12.0-16.0); Mean Corpuscular Hemoglobin 23.7 pg (25.0-34.0); Mean Corpuscular Volume 74.8 fL (80.0-100.0); Platelet Count 587 K/uL (130-400); RDW Standard Deviation 52.2 fL (36.4-46.3); Red Blood Count 4.01 M/uL (4.20-5.40); White Blood Count 9.98 K/ul (4.8-10.8)
[2024-10-17 10:15] LABS: Anion Gap 8.0 (3-11); Blood Urea Nitrogen 18.0 mg/dl (6-23); Calcium 9.9 mg/dl (8.6-10.3); Carbon Dioxide 26.0 mmol/L (21-32); Chloride 98.0 mmol/L (98-107); Creatinine Clr Calc Pharmacy 89.7 ml/min; Glucose 215.0 mg/dl (70-99(Fasting)); Potassium 4.2 mmol/L (3.5-5.1); Sodium 132.0 mmol/L (136-145)
--- NOTE | 2024-10-17 10:28 | Discharge Summary ---
Discharge Summary Date of Service October 17, 2024 Principal Dx & Hospital Course #1 = Principal Diagnosis (1) Hyponatremia: (2) Urinary tract infection: (3) Iron deficiency anemia: Plan This patient is a 63-year-old female who presented on 10/14 for increased fatigue x 2 days [employer]. Recent hospitalization at [facility] for kidney stone removal. At that time, she had a low hemoglobin of 6.9, and a low sodium of 122. Upon discharge her hemoglobin level is 9.5, and her sodium level was 132. Day of discharge 10/17: Patient reports she is still feeling fatigued this morning, but her pain is better controlled. The pain in her left ear is a 2 out of 10, and she characterizes it as an "aching pain". The pain in her left flank is around a 5 out of 10. However, the "sharp/shooting" pain rating to her back has resolved. She denies any bright red blood in her urine, and reports it was fairly clear this morning. She had a bowel movement this morning that was fully formed. She denies any allergies to penicillins. While she still feels somewhat weak, and has an ongoing dry cough, she is eager to return home at this time ROS: Patient endorses dry cough, fatigue, ear ache, and left-sided flank pain/swelling. Patient denies fever, chest pain, SOB, nausea, vomiting, or bright red blood in her urine/stool. #Hyponatremia (improving) Patient remains euvolemic on exam Na trend 124 -> 130 -> 131 -> 132 H/o chronic hyponatremia; most recently the patient was low at 122 at [facility], but tian to 128 prior to discharge (per patient; no records readily available) Suspect that patient's hyponatremia is due to HCTZ usage (which was discontinued at time of discharge; however, patient went back on it due to lower extremity edema) Discontinue further HCTZ use COVID/flu/RSV negative Fluid restriction at 1200mL while in the hospital Recommend follow-up BMP in the next 2 to 3 days prior to transitional care appointment #Cerumen ear impaction vs. otitis media New left ear pain developed while in the hospital On clinical exam, there is red/black cerumen impaction against tympanic membrane with erythema; unable to assess for bulging Rocephin 2000 g IV x 1 in the hospital to cover for potential otitis media Will plan to discharge patient on Augmentinclavulanate 875-125 mg tablets twice daily x 4 additional days (to complete full course of antibiotics) #UTI Clinically, patient endorsed burning with urination / groin pain on arrival UA positive on arrival Most recent urine culture 07/2021 grew Proteus vulgaris with resistance to ceftriaxone UCx on 10/16 without growth Patient received short course of levofloxacin while in the hospital However, patient reported worsening of left sided flank/groin pain on 10/16 that woke her from sleep A/P CT without contrast ordered to assess status of urethral stent Revealed numerous stone fragments in the left kidney, but no reported obstructions; left ureteral stent in place Continue oxybutynin PRN Continue tamsulosin Renal function okay Acetaminophen and lidocaine patches as needed for pain Augmentin upon discharge (as above) #Iron deficiency anemia Hgb 9.5 on arrival; MCV low at 72.5 Patient reports her hemoglobin was 8.4 at time of discharge from [facility] ? Acute blood loss anemia in the setting of recent procedure v. SHANNON Iron low at 21 on 10/15 Patient does report history of SHANNON back when she was H/o colonic resection ~10y ago at [facility] She reports she is never been on iron supplements in the past Last colonoscopy >10 y ago; patient denies family history of colon cancer Initiate ferrous sulfate 325 mg p.o. QAM Recommend GI follow-up for colonoscopy on discharge #LE edema No LE edema at present, but patient reports that when she stopped taking HCTZ in the past, her legs "ballooned" up Will defer sodium tablets at this time Fluid restriction (as above) #Hypothyroidism TSH WNL Continue levothyroxine #HTN Initiate lisinopril 40 mg p.o. daily LisinoprilHCTZ tablets have been discontinued Disposition: Discharge home Notes For Next Care Provider Patient was hospitalized from 10/14 - 10/17 for acute fatigue likely secondary to UTI. Recent history of hospitalization at [facility] where she had a kidney stone removal and percutaneous nephrolithotomy on her left kidney (10/02). While in the hospital, patient reports that her hemoglobin was that at 6.9, and she required a blood transfusion. Patient's hemoglobin was stable over the course of this hospital stay and is currently 9.5 at time of discharge. Her iron panel came back with low iron 21. Ferrous sulfate 325 mg p.o. daily added. Colace added for stool softener. Patient's last colonoscopy was greater than 10 years ago, recommend GI follow-up for colonoscopy in the onset of new SHANNON Patient was hyponatremic at 124 on arrival. Suspect this is largely due to reinitiating HCTZ for leg swelling. Recommend discontinuing HCTZ. Patient's sodium returned to 132 with a fluid restriction. Would not recommend patient increase salt intake outpatient, which she was under the assumption she should do during her last discharge. Repeat BMP prior to transitional care appointment. Admission HPI Per Admitting Provider Mrs. Hill is a 63-year-old female with PMH of diabetes, HTN, pyelonephritis, urinary tract infections, and kidney stone stent/removal. She presented on 10/14 at the behest of her PCP due to increased fatigue x 2 days [employer]. Patient reports that she felt more tired and drained over the past 2 days, and this has been gradually worsening. Recent history of hospitalization at [facility] where she had a kidney stone removal and percutaneous nephrolithotomy on her left kidney (10/02). While in the hospital, patient reports that her hemoglobin was that at 6.9, and she required a blood transfusion. Her Hgb was 8.7 on discharge. She is unsure what her sodium level was upon discharge, but believes it dropped down to a low of 122, and tian to around 128 at time of discharge. She does have a history of low sodium in the past, and her lisinoprilHCTZ was held prior to her procedure. Upon discharge, she was told to be on lisinopril 40 mg p.o. daily, however her leg started to "balloon up" and she went back on lisinopril-HCTZ. Patient denies prior history of CHF. She takes lisinopril HCTZ for her high blood pressure, and more recently for her lower extremity edema. Patient took her regular morning medicine today. Only recent change in medications, is that she was started on tamsulosin and oxybutynin upon discharge from [facility]. She denies any sick contacts. She does have a dry cough and congestion at baseline, but attributes this to her allergies. Additionally, patient reports that her sugar levels were elevated above 200 this morning; normally she controls her diabetes with diet alone. Patient denies smoking, tobacco use, recent alcohol use. Patient is tachycardic at 109 bpm at time of admission; vitals otherwise stable. ED course: Levofloxacin 750 mg p.o. 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 Patient denies fever, chills, night-sweats, chest pain, chest palpitations, SOB, abdominal pain, vomiting, BRB in the urine/stool, or saddle anesthesia. Admission Exam Per Admitting Provider General: no acute distress; pleasant affect; non-toxic appearing; well- nourished; cooperative; SpO2 97% on RA HEENT: normocephalic, atraumatic; PERRLA; vision and hearing grossly intact Neck: supple; no lymphadenopathy; trachea midline Skin: warm, dry without signs of tenting; no cyanosis; no rashes, bruising, lesions, or erythema noted CV: chest wall NTP; RR, mildly tachycardic around 100 to 110 bpm; S1/S2 normal; no murmurs/rubs/gallops; pulses intact and symmetric at radial, DP, and PT Lungs: no acute respiratory distress; symmetrical chest wall expansion; clear breath sounds across all lung anand w/o adventitious sounds; no wheezing ABD: Soft, TTP in the left lower quadrant with some surrounding edema; no rashes or bruising appreciated in the abdomen or flanks bilaterally; BS present; no rebound/guarding; mild distention secondary to body habitus Back: Left-sided CVA tenderness to palpation; upper spine NTP; negative right sided CVA tenderness MSK: no tics or fasciculations; no edema noted in the LEs b/l, nonerythematous Neuro: A&Ox3; normal mood and affect; regular gait; fluent speech; no focal deficits; sensation intact and symmetric in all extremities bilaterally assessed via light touch Discharge Exam General: no acute distress; pleasant affect; sitting upright in bed; non-toxic appearing; well-nourished; cooperative; SpO2 96% on RA HEENT: normocephalic, atraumatic; PERRLA; vision intact; right ear with TM pearly reed/no erythema appreciated; left ear exhibits cerumen versus dried blood, canal is erythematous, mild bulging of the tympanic membrane Neck: supple; no lymphadenopathy; trachea midline Skin: warm, dry without signs of tenting; no cyanosis; no rashes, bruising, lesions, or erythema noted CV: chest wall NTP; RRR; S1/S2 normal; no murmurs/rubs/gallops; pulses intact and symmetric at radial, DP, and PT Lungs: no acute respiratory distress; symmetrical chest wall expansion; clear breath sounds across all lung anand w/o adventitious sounds; no wheezing ABD: Soft, TTP in the left lower quadrant with some surrounding edema; no rashes or bruising appreciated in the abdomen or flanks bilaterally; BS present; no rebound/guarding; mild distention secondary to body habitus Back: Left-sided CVA tenderness to palpation; upper spine NTP; negative right sided CVA tenderness MSK: no tics or fasciculations; no edema noted in the LEs b/l, nonerythematous Neuro: A&Ox3; normal mood and affect; regular gait; fluent speech; no focal deficits; sensation intact and symmetric in all extremities bilaterally assessed via light touch Discharge Plan Discharge Items Patient Disposition: Home - Self-Care Reason For Visit: HYPONATREMIA, UTI Discharge Diagnosis: Hyponatremia, UTI, anemia, generalized fatigue Condition on Discharge: Good Activity: Resume your previous activity Non-emergency contact: Primary Care Provider and Urologist Call non-emergency contact if: you have any medication questions, your symptoms worsen, your pain is not controlled and you have a fever Follow-up/Referrals: Itzel Angela [Primary Care Provider] - Diet: Regular Addtl Attending Provider Instructions: You were hospitalized at [facility] from 10/14 - 10/17 for generalized fatigue in the setting of your recent ureteral stent procedure. While there was initially concern for low hemoglobin level, your hemoglobin level remained stable from approximately 9.3 to 9.5 throughout your hospital stay (normal range 12-16). An iron panel was obtained, and was found that you had low iron levels. While your recent urologic procedure is likely contributing, low iron can also be the cause for anemia. New prescriptions on discharge: - Ferrous sulfate (iron tablets) 325 mg daily - Augmentinclavulanate 875-125 mg tablets twice daily x 4 days - Lisinopril 40 mg daily - Docusate sodium "Colace" (stool softener) 100 mg capsules as needed for constipation - Benzonatate ("Tessalon Perles") 100 mg capsules twice daily as needed for cough Augmentin is an antibiotic to be taken for both your left ear infection, as well as your urinary tract infection. Please plan to complete the full course of these antibiotics even if you begin to feel better over the next several days. You may also benefit from having your left ear flushed outpatient for suspected earwax impaction. Please plan to follow-up with your PCP in the next 7 to 10 days for a transitional care appointment. Prior to this appointment, it is recommended that you obtain blood work checking both your hemoglobin levels as well as your sodium levels (these tests are called an H&H and BMP). While your sodium level increased over the course of your hospital stay from 124 to 132, it is still relatively low. Please discontinue taking your lisinoprilhydrochlorothiazide tablets. We recommend Tylenol 500 mg tablets every 4-6 hours as needed for your left flank pain related to ureteral stent; do not exceed 3000 mg of Tylenol daily. Additionally, you may benefit from lidocaine patch application to your left flank or back as needed for pain. If you develop any new or worsening symptoms, such as loss of hearing in the left ear, intractable left flank pain, blood in your urine, fever, chills, or trouble breathing, please return to the emergency department immediately. It was a pleasure taking care of you. Please reach out any questions or concerns. Sincerely, The hospital medicine team at [facility] Pending Studies at Discharge: No Stand-Alone Forms: My [facility] Medications and DC Order Prescriptions: New ferrous sulfate 325 mg (65 mg iron) Tablet,Delayed Release (Dr/Ec) 325 mg PO QAM Qty: 30 0RF Rx Instructions: Take 1 tablet by mouth daily lisinopril 40 mg Tablet 40 mg PO DAILY Qty: 14 0RF Rx Instructions: Take 1 tablet by mouth daily amoxicillin-pot clavulanate 875-125 mg tablet 1 tab PO BID Qty: 8 0RF Rx Instructions: Take 1 tablet by mouth twice daily x 4 days docusate sodium [Colace] 100 mg capsule 100 mg PO DAILY PRN (Reason: constipation) Qty: 30 0RF Rx Instructions: Take 1 capsule daily as needed for constipation benzonatate 100 mg capsule 100 mg PO BID PRN (Reason: cough) Qty: 14 0RF Rx Instructions: Take 1 capsule by mouth twice daily as needed for cough Continued oxybutynin chloride 10 mg tablet extended release 24hr 10 mg PO QAM (DME) Accu-Chek Guide test strips Strip MISCELLANEOUS levothyroxine 25 mcg tablet 25 mcg PO DAILYBB tamsulosin 0.4 mg capsule 0.4 mg PO QAM omeprazole 20 mg capsule,delayed release(DR/EC) 40 mg PO QAM cranberry 500 mg Capsule 1,000 mg PO QAM Rx Instructions: administer with meals Kelp (iodine) 150 mcg Tablet 150 mcg PO QAM Cbd Gummy 1 gummy PO HS Deep Blue Capsule 1 cap PO BID Rx Instructions: OTC pain relief Doterra Vitamins 2 tab PO BID Tri-Ease 1 tab PO QAM Rx Instructions: OTC allergy med berberine chloride 1 cap PO AC Rx Instructions: OTC digestive aid Discontinued lisinopril-hydrochlorothiazide 20-12.5 mg tablet 1 tab PO QAM Discharge Orders: Discharge Order (Routine); Ordered 10/17/24 Ordered By: Anatoliy Boo/Other Patient Handouts: Managing Type 2 Diabetes, Having a Ureteral Stent Admission Data Admit Date/Time: 10/14/24 16:36 Attending Provider: Senthil Reddy Admit Provider: Naseem Hart Primary Care Provider: Itzel Angela Other Providers: Naseem Hart Hospital Stay Data Consultations 10/14/24 15:48 ED Decision to Admit Stat Diagnostic Imagining Performed 10/16/24 13:54 CT Abd and Pelvis [CT abd pelvis wo con] Stat Discharge Instructions Given to Patient (Per Discharging Provider) You were hospitalized at [facility] from 10/14 - 10/17 for generalized fatigue in the setting of your recent ureteral stent procedure. While there was initially concern for low hemoglobin level, your hemoglobin level remained stable from approximately 9.3 to 9.5 throughout your hospital stay (normal range 12-16). An iron panel was obtained, and was found that you had low iron levels. While your recent urologic procedure is likely contributing, low iron can also be the cause for anemia. New prescriptions on discharge: - Ferrous sulfate (iron tablets) 325 mg daily - Augmentinclavulanate 875-125 mg tablets twice daily x 4 days - Lisinopril 40 mg daily - Docusate sodium "Colace" (stool softener) 100 mg capsules as needed for constipation - Benzonatate ("Tessalon Perles") 100 mg capsules twice daily as needed for cough Augmentin is an antibiotic to be taken for both your left ear infection, as well as your urinary tract infection. Please plan to complete the full course of these antibiotics even if you begin to feel better over the next several days. You may also benefit from having your left ear flushed outpatient for suspected earwax impaction. Please plan to follow-up with your PCP in the next 7 to 10 days for a transitional care appointment. Prior to this appointment, it is recommended that you obtain blood work checking both your hemoglobin levels as well as your sodium levels (these tests are called an H&H and BMP). While your sodium level increased over the course of your hospital stay from 124 to 132, it is still relatively low. Please discontinue taking your lisinoprilhydrochlorothiazide tablets. We recommend Tylenol 500 mg tablets every 4-6 hours as needed for your left flank pain related to ureteral stent; do not exceed 3000 mg of Tylenol daily. Additionally, you may benefit from lidocaine patch application to your left flank or back as needed for pain. If you develop any new or worsening symptoms, such as loss of hearing in the left ear, intractable left flank pain, blood in your urine, fever, chills, or tr ouble breathing, please return to the emergency department immediately. It was a pleasure taking care of you. Please reach out any questions or concerns. Sincerely, The hospital medicine team at [facility] Total Time Total Time Spent Total Time Spent (In Minutes): 35 C[place] [address] INP/OBS DISCH >30 MIN Patient Type Established History Comprehensive Exam Comprehensive Medical Decision Making Moderate Complexity Diagnoses Hyponatremia E87.1 Urinary tract infection N39.0 Iron deficiency anemia D50.9
== END 2024-10-17 12:19 | disposition home or self-care (01) | DRG 641 ==
LOC: SUATTDRO → ED 12:57 → SUATTDRO 16:36 → EDINP 16:36 → 2W 19:55 → 2N 10-15 06:35